=== PATIENT | male | born 1985 | race Caucasian/White ===

== ENCOUNTER 2017-03-08 21:35 | Emergency (ER) | payer MEDICAID, OTHER ==
[2017-03-08] MEDS ORDERED: Ibuprofen 800 MG Tab PO ONE (22:04)
[2017-03-08] MEDS ORDERED: Penicillin V Potassium 500 MG Tab PO STA (22:04)
--- NOTE | 2017-03-08 22:05 | EDM.PDOC ---
ED HPI GENERAL MEDICAL PROBLEM - General Chief Complaint: General Stated Complaint: PT HAS TOOTHACHE Time Seen by Provider: 03/08/17 22:00 Source of Information: Reports: Patient History Limitations: Reports: No Limitations - History of Present Illness INITIAL COMMENTS - FREE TEXT/NARRATIVE: HISTORY AND PHYSICAL: History of present illness: [31-year-old male with multiple caries now complaining of toothache left upper. No facial swelling fevers chills sweats or shaking chills. No headache or stiff neck. No chest pain shortness of breath. Patient has multiple cavities in the tooth that's involved however he says the dentist is "trying to save it. "] Review of systems: As per history of present illness and below otherwise all systems reviewed and negative. Past medical history: As per history of present illness and as reviewed below otherwise noncontributory. Surgical history: As per history of present illness and as reviewed below otherwise noncontributory. Social history: No reported history of drug or alcohol abuse. Family history: As per history of present illness and as reviewed below otherwise noncontributory. Physical exam: Well-appearing patient smiling and comfortable. Left maxillary distribution largely edentulous with a single-tooth with multiple caries. No soft tissue swelling or mass. No cheek swelling. No crepitus. Normal intraoral exam otherwise with no tongue elevation and normal oropharynx. HEENT: Normocephalic, atraumatic, pupils normal and symmetrical, supple neck, no meningismus, normal color Lungs: Normal and symmetrical chest wall excursion bilateral with no tachypnea or increased work of breathing, grossly normal chest exam Heart: No tachycardia in triage Abdomen: Normal-appearing, nondistended, no visible mass or asymmetry Pelvis: Normal-appearing Genitourinary: Deferred Rectal exam: Deferred Extremities: Atraumatic, normal use and range of motion, no visible evidence of gross neurovascular compromise Neuro: Awake, alert, oriented. Normal and appropriate mental status. Cranial nerves grossly unremarkable. Motor function normal. Nonfocal neurologic exam. Diagnostics: [] Therapeutics: [Penicillin and Motrin] Impression: [Toothache Caries] Plan: [Signs and symptoms consistent with caries and toothache discussed with patient possibility of dental infection. Will prescribe penicillin. He is aware to take NSAIDs and follow-up with dentist.] Definitive disposition and diagnosis as appropriate pending reevaluation and review of above. dental area Pain Score (Numeric/FACES): 8 - Related Data Allergies Allergy/AdvReac Type Severity Reaction Status Date / Time hydromorphone Allergy Respiratory Verified 03/08/17 21:52 Distress Home Meds: Home Meds Cholecalciferol (Vitamin D3) [Vitamin D] 5,000 unit PO DAILY 05/27/15 [History] atorvaSTATin [Lipitor] 20 mg PO BEDTIME 05/27/15 [History] Penicillin V Potassium [IJP: Penicillin V Potassium] 500 mg PO .EVERY 6 HOURS # 40 tab 03/08/17 [Rx] Past Medical History HEENT History: Reports: None Cardiovascular History: Reports: High Cholesterol Respiratory History: Reports: None Gastrointestinal History: Reports: None Genitourinary History: Reports: None Musculoskeletal History: Reports: Other (See Below) Other Musculoskeletal History: right arm crush injury Neurological History: Reports: None Psychiatric History: Reports: None Endocrine/Metabolic History: Reports: None Hematologic History: Reports: None Immunologic History: Reports: None Oncologic (Cancer) History: Reports: None Dermatologic History: Reports: None - Infectious Disease History Infectious Disease History: Reports: None - Past Surgical History Head Surgeries/Procedures: Reports: None Musculoskeletal Surgical History: Reports: Other (See Below) Other Musculoskeletal Surgeries/Procedures:: hand surgery Social & Family History - Family History Family Medical History: Noncontributory - Tobacco Use Smoking Status *Q: Never Smoker Second Hand Smoke Exposure: No - Caffeine Use Caffeine Use: Reports: Energy Drinks - Recreational Drug Use Recreational Drug Use: No ED ROS GENERAL - Review of Systems Review Of Systems: See Below (History of present illness) ED EXAM, GENERAL - Physical Exam Exam: See Below (History of present illness) Course - Vital Signs Last Recorded V/S: Last Vital Signs Temp 36.2 C 03/08/17 21:47 Pulse 90 03/08/17 21:47 Resp 16 03/08/17 21:47 BP 134/78 03/08/17 21:47 Pulse Ox 98 03/08/17 21:47 Departure - Departure Time of Disposition: 22:02 Disposition: Home, Self-Care 01 Condition: Good Clinical Impression: Toothache, Caries - Discharge Information Referrals: PCP,None [Primary Care Provider] - Forms: ED Department Discharge Additional Instructions: You have cavities. Finish penicillin as prescribed. Take 800 mg ibuprofen every 6 hours As needed for pain. Follow-up with your dentist in 2 days and return immediately for new severe or worsening symptoms
[2017-03-08 22:27] VITALS: BP 128/70
== END 2017-03-08 22:27 | disposition home or self-care (01) ==
LOC: MW.ED 21:35
DX: K02.9 Dental caries, unspecified (principal); E78.00 Pure hypercholesterolemia, unspecified; Z98.890 Other specified postprocedural states; Z88.5 Allergy status to narcotic agent
CPT/HCPCS: 99282; A9270

== ENCOUNTER 2019-03-08 20:44 | Emergency (ER) | payer OTHER ==
[2019-03-08] MEDS ORDERED: Ketorolac 30 MG/ML SDV IVPUSH ONE (20:45)
[2019-03-08] MEDS ORDERED: Sodium Chloride 0.9% 1,000 ML IV ONE (20:45)
--- NOTE | 2019-03-08 20:49 | EDM.PDOC ---
ED HPI GENERAL MEDICAL PROBLEM - General Stated Complaint: CHEST PAIN Time Seen by Provider: 03/08/19 20:45 Source of Information: Reports: Patient History Limitations: Reports: No Limitations - History of Present Illness INITIAL COMMENTS - FREE TEXT/NARRATIVE: HISTORY AND PHYSICAL: History of present illness: Patient is a 33-year-old male who presents to the emergency room today with complaints of left lateral chest wall pain 2 days. He states that the pain is worse with palpation, deep breathing or aggressive movements. States the pain is constantly there but does not radiate anywhere. Initially he thought the pain was heartburn and as he does frequently have indigestion. He has been taking [id number] products for this without any relief of his pain. He denies any recent injury, trauma or falls. Denies any recent alcohol or drug abuse. Patient denies any fever, chills, headache, change in vision, syncope or near syncope. Denies any back pain, shortness of breath or cough. Denies any abdominal pain, nausea, vomiting, diarrhea or dysuria. States he hasn't had a BM in 4 days, although does not feel constipated. Has not noted any blood in urine or stool. Patient has been eating and drinking appropriately. Review of systems: As per history of present illness and below otherwise all systems reviewed and negative. Past medical history: As per history of present illness and as reviewed below otherwise noncontributory. Surgical history: As per history of present illness and as reviewed below otherwise noncontributory. Social history: See social history for further information Family history: As per history of present illness and as reviewed below otherwise noncontributory. Physical exam: General: Well-developed and well-nourished 33-year-old male. Alert and oriented. Nontoxic appearing and in no acute distress. HEENT: Atraumatic, normocephalic, pupils equal and reactive bilaterally, negative for conjunctival pallor or scleral icterus, mucous membranes moist, TMs normal bilaterally, throat clear, neck supple, nontender, trachea midline. No drooling or trismus noted. No meningeal signs. No hot potato voice noted. Lungs: Clear to auscultation, breath sounds equal bilaterally, tender to palpation to the left lateral and anterior chest wall. Heart: S1S2, regular rate and rhythm without overt murmur Abdomen: Soft, nondistended, nontender. Negative for masses or hepatosplenomegaly. Negative for costovertebral tenderness. Pelvis: Stable nontender. Genitourinary: Deferred. Rectal: Deferred. Skin: Intact, warm, dry. No lesions or rashes noted. Extremities: Atraumatic, moves all extremities per self without difficulty or deficits, negative for cords or calf pain. Neurovascular unremarkable. Neuro: Awake, alert, oriented. Cranial nerves II through XII unremarkable. Cerebellum unremarkable. Motor and sensory unremarkable throughout. Exam nonfocal. Notes: Patient is agreeable to diagnostics. Vital signs are stable and have been reviewed by me. EKG shows normal sinus rhythm. Lab work is unremarkable. Xray shows "normal cardiothymic silhouette. Clear lungs and pleural spaces. No free air. No moderate to large amount of feces throughout the colon. No pneumatosis. No acute osseous abnormality." Medication education was reviewed and discussed for discharge. Supportive care measures were reviewed and discussed. Voices understanding and is agreeable to plan of care. Denies any further questions or concerns at this time. Diagnostics: CBC, CMP, troponin, EKG, acute abdominal series including chest Therapeutics: IV fluid, Toradol Prescription: Tramadol (#15) Impression: Chest wall pain Plan: 1. Tylenol and/or ibuprofen as needed for pain management. Tramadol as needed for moderate to severe pain. This medication may cause drowsiness so do not take it will driving her needing to be functioning outside of the house. 2. Follow-up with your primary care provider as we discussed. Return to the ED as needed and as discussed. Definitive disposition and diagnosis as appropriate pending reevaluation and review of above. Duration: Day(s): Left Chest Pain Score (Numeric/FACES): 7 - Related Data Allergies Allergy/AdvReac Type Severity Reaction Status Date / Time hydromorphone Allergy Respiratory Verified 09/24/18 11:01 MST Distress Home Meds: Home Meds Cholecalciferol (Vitamin D3) [Vitamin D] 5,000 unit PO DAILY 05/27/15 [History] atorvaSTATin [Lipitor] 20 mg PO BEDTIME 05/27/15 [History] Past Medical History HEENT History: Reports: None Cardiovascular History: Reports: High Cholesterol Respiratory History: Reports: None Gastrointestinal History: Reports: GERD Genitourinary History: Reports: None Musculoskeletal History: Reports: Other (See Below) Other Musculoskeletal History: Right hand surgery for a crush injury Neurological History: Reports: None Psychiatric History: Reports: None Endocrine/Metabolic History: Reports: None Hematologic History: Reports: None Immunologic History: Reports: None Oncologic (Cancer) History: Reports: None Dermatologic History: Reports: None - Infectious Disease History Infectious Disease History: Reports: None - Past Surgical History Head Surgeries/Procedures: Reports: None Social & Family History - Family History Family Medical History: Noncontributory - Caffeine Use Caffeine Use: Reports: Soda - Living Situation & Occupation Living situation: Reports: , with Spouse, with Family (4 kids) 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 ED EXAM, GENERAL - Physical Exam Exam: See Below (See dictation) Course - Vital Signs Last Recorded V/S: Last Vital Signs Temp 96.8 F 03/08/19 20:48 Pulse 86 03/08/19 20:48 Resp 16 03/08/19 20:48 BP 131/91 H 03/08/19 20:48 Pulse Ox 95 03/08/19 20:48 - Orders/Labs/Meds Orders: Active Orders 24 hr Category Date Time Status EKG Documentation Completion [RC] STAT Care 03/08/19 20:45 Active Labs: Laboratory Tests 03/08/19 03/08/19 Range/Units 20:58 20:58 WBC 6.84 (4.0-11.0) K/uL RBC 5.51 (4.50-5.90) M/uL Hgb 16.2 (13.0-17.0) g/dL Hct 46.7 (38.0-50.0) % MCV 84.8 (80.0-98.0) fL MCH 29.4 (27.0-32.0) pg MCHC 34.7 (31.0-37.0) g/dL RDW Std Deviation 39.3 (28.0-62.0) fl RDW Coeff of Ekaterina 13 (11.0-15.0) % Plt Count 214 (150-400) K/uL MPV 10.10 (7.40-12.00) fL Neut % (Auto) 51.8 (48.0-80.0) % Lymph % (Auto) 34.8 (16.0-40.0) % [place] % (Auto) 10.4 (0.0-15.0) % Eos % (Auto) 2.6 (0.0-7.0) % Baso % (Auto) 0.4 (0.0-1.5) % Neut # (Auto) 3.5 (1.4-5.7) K/uL Lymph # (Auto) 2.4 (0.6-2.4) K/uL [place] # (Auto) 0.7 (0.0-0.8) K/uL Eos # (Auto) 0.2 (0.0-0.7) K/uL Baso # (Auto) 0.0 (0.0-0.1) K/uL Nucleated RBC % 0.0 /100WBC Nucleated RBCs # 0 K/uL Sodium 137 (136-148) mmol/L Potassium 3.5 (3.5-5.1) mmol/L Chloride 101 (98-107) mmol/L Carbon Dioxide 29.0 (21.0-32.0) mmol/L BUN 12 (7.0-18.0) mg/dL Creatinine 1.0 (0.8-1.3) mg/dL Est Cr Clr Drug Dosing 99.15 mL/min Estimated GFR (MDRD) > 60.0 ml/min Glucose 103 (74-106) mg/dL Calcium 8.6 (8.5-10.1) mg/dL Total Bilirubin 0.7 (0.2-1.0) mg/dL AST 24 (15-37) IU/L ALT 53 (14-63) IU/L Alkaline Phosphatase 103 (46-116) U/L Troponin I < 0.050 (0.000-0.056) ng/mL Total Protein 7.6 (6.4-8.2) g/dL Albumin 4.0 (3.4-5.0) g/dL Globulin 3.6 (2.6-4.0) g/dL Albumin/Globulin Ratio 1.1 (0.9-1.6) Meds: Medications Discontinued Medications Generic Name Dose Route Start Last Admin Trade Name Freq PRN Reason Stop Dose Admin Sodium Chloride 1,000 mls @ 999 mls/hr 03/08/19 20:45 03/08/19 21:01 Normal Saline IV 06/14/19 21:45 999 mls/hr STAT ONE Administration Ketorolac Tromethamine 30 mg 03/08/19 20:45 03/08/19 21:02 Toradol IVPUSH 03/08/19 20:46 30 mg ONETIME ONE Administration Departure - Departure Time of Disposition: 21:58 Disposition: Home, Self-Care 01 Clinical Impression: Chest wall pain - Discharge Information Instructions: Chest Wall Pain, [id number] Additional Instructions: The following information is given to patients seen in the emergency department who are being discharged to home. This information is to outline your options for follow-up care. We provide all patients seen in our emergency department with a follow-up referral. The need for follow-up, as well as the timing and circumstances, are variable depending upon the specifics of your emergency department visit. If you don't have a primary care physician on staff, we will provide you with a referral. We always advise you to contact your personal physician following an emergency department visit to inform them of the circumstance of the visit and for follow-up with them and/or the need for any referrals to a consulting specialist. The emergency department will also refer you to a specialist when appropriate. This referral assures that you have the opportunity for follow-up care with a specialist. All of these measure are taken in an effort to provide you with optimal care, which includes your follow-up. Under all circumstances we always encourage you to contact your private physician who remains a resource for coordinating your care. When calling for follow-up care, please make the office aware that this follow-up is from your recent emergency room visit. If for any reason you are refused follow-up, please contact the [facility] Emergency Department at and asked to speak to the emergency department charge nurse. [facility] [address] [address] [facility] [address] [place] [id number] 1. Tylenol and/or ibuprofen as needed for pain management. Tramadol as needed for moderate to severe pain. This medication may cause drowsiness so do not take it will driving her needing to be functioning outside of the house. 2. Follow-up with your primary care provider as we discussed. Return to the ED as needed and as discussed. - My Orders Last 24 Hours: My Active Orders 03/08/19 20:45 EKG Documentation Completion [RC] STAT - Assessment/Plan Last 24 Hours: My Active Orders 03/08/19 20:45 EKG Documentation Completion [RC] STAT
[2019-03-08 21:33] LABS: CHLORIDE,CL 101 mmol/L (98-107); SODIUM,NA 137 mmol/L (136-148)
--- NOTE | 2019-03-08 21:55 | CR ---
Indication: No bowel movement for 4 days, left upper quadrant pain Technique: Frontal view chest, supine and upright views abdomen Comparison: None Findings/Impression: : Normal cardiothymic silhouette. Clear lungs and pleural spaces. No free air. No moderate to large amount of feces throughout the colon. No pneumatosis. No acute osseous abnormality. Dictated by Cindy Cochran MD @ Mar 08 2019 9:54PM Signed by Dr. Cindy Cochran @ Mar 08 2019 9:54PM
[2019-03-08 22:42] VITALS: BP 130/88
== END 2019-03-08 22:18 | disposition home or self-care (01) ==
LOC: MW.ED 20:44
DX: R07.89 Other chest pain (principal); E78.00 Pure hypercholesterolemia, unspecified; K21.9 Gastro-esophageal reflux disease without esophagitis; Z88.5 Allergy status to narcotic agent; Z79.899 Other long term (current) drug therapy
CPT/HCPCS: 36415; 74022; 80053; 84484; 85025; 93005; 96361; 96374; 99285; J1885; J7040

== ENCOUNTER 2019-07-21 23:16 | Emergency (ER) | payer BC, OTHER ==
[2019-07-21] MEDS ORDERED: Sodium Chloride 0.9% 1,000 ML IV ONE ×2 (23:25→23:32)
--- NOTE | 2019-07-21 23:28 | EDM.PDOC ---
ED HPI GENERAL MEDICAL PROBLEM - General Chief Complaint: Abdominal Pain Stated Complaint: PAIN IN LOWER RIGHT SIDE Time Seen by Provider: 07/21/19 23:21 - History of Present Illness INITIAL COMMENTS - FREE TEXT/NARRATIVE: HISTORY AND PHYSICAL: History of present illness: Patient 34-year-old male presents with concern of abdominal pain this been going on for 1 week he has been seeing his private physician for he denies fever chills nausea vomiting diarrhea or other concern denies trauma Review of systems: As per history of present illness and below otherwise all systems reviewed and negative. Past medical history: As per history of present illness and as reviewed below otherwise noncontributory. Surgical history: As per history of present illness and as reviewed below otherwise noncontributory. Social history: No reported history of drug or alcohol abuse. Family history: As per history of present illness and as reviewed below otherwise noncontributory. Physical exam: HEENT: Atraumatic, normocephalic, pupils reactive, negative for conjunctival pallor or scleral icterus, mucous membranes moist, throat clear, neck supple, nontender, trachea midline. Lungs: Clear to auscultation, breath sounds equal bilaterally, chest nontender. Heart: S1S2, regular, negative for clicks, rubs, or JVD. Abdomen: Soft, nondistended, nontender. Negative for masses or hepatosplenomegaly. Negative for costovertebral tenderness. Pelvis: Stable nontender. Genitourinary: Deferred. Rectal: Deferred. Extremities: Atraumatic, negative for cords or calf pain. Neurovascular unremarkable. Neuro: Awake, alert, oriented. Cranial nerves II through XII unremarkable. Cerebellum unremarkable. Motor and sensory unremarkable throughout. Exam nonfocal. Diagnostics: CBC CMP UA acute abdominal series with chest x-ray Therapeutics: Saline 1 L bolus Impression: #1 nonspecific abdominal pain Definitive disposition and diagnosis as appropriate pending reevaluation and review of above. - Related Data Allergies Allergy/AdvReac Type Severity Reaction Status Date / Time hydromorphone Allergy Respiratory Verified 09/24/18 11:01 MST Distress Home Meds: Home Meds Cholecalciferol (Vitamin D3) [Vitamin D] 5,000 unit PO DAILY 05/27/15 [History] atorvaSTATin [Lipitor] 20 mg PO BEDTIME 05/27/15 [History] traMADol [Ultram] 50 mg PO ASDIRECTED 07/21/19 [History] Past Medical History HEENT History: Reports: None Cardiovascular History: Reports: High Cholesterol Respiratory History: Reports: None Gastrointestinal History: Reports: GERD Genitourinary History: Reports: None Musculoskeletal History: Reports: Other (See Below) Other Musculoskeletal History: Right hand surgery for a crush injury Neurological History: Reports: None Psychiatric History: Reports: None Endocrine/Metabolic History: Reports: None Hematologic History: Reports: None Immunologic History: Reports: None Oncologic (Cancer) History: Reports: None Dermatologic History: Reports: None - Infectious Disease History Infectious Disease History: Reports: None - Past Surgical History Head Surgeries/Procedures: Reports: None Social & Family History - Family History Family Medical History: Noncontributory - Caffeine Use Caffeine Use: Reports: Soda - Living Situation & Occupation Living situation: Reports: , with Spouse, with Family (4 kids) 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 ED EXAM, GENERAL - Physical Exam Exam: See Below (See dictation) Course - Vital Signs Last Recorded V/S: Last Vital Signs Temp 36.4 C 07/22/19 00:51 Pulse 88 07/22/19 00:51 Resp 16 07/22/19 00:51 BP 129/75 07/22/19 00:51 Pulse Ox 97 07/22/19 00:51 - Orders/Labs/Meds Labs: Laboratory Tests 07/21/19 07/21/19 07/21/19 Range/Units 23:33 23:40 23:40 WBC 7.82 (4.0-11.0) K/uL RBC 5.35 (4.50-5.90) M/uL Hgb 15.7 (13.0-17.0) g/dL Hct 45.1 (38.0-50.0) % MCV 84.3 (80.0-98.0) fL MCH 29.3 (27.0-32.0) pg MCHC 34.8 (31.0-37.0) g/dL RDW Std Deviation 38.3 (28.0-62.0) fl RDW Coeff of Ekaterina 13 (11.0-15.0) % Plt Count 227 (150-400) K/uL MPV 10.30 (7.40-12.00) fL Neut % (Auto) 62.1 (48.0-80.0) % Lymph % (Auto) 29.2 (16.0-40.0) % [place] % (Auto) 6.5 (0.0-15.0) % Eos % (Auto) 1.7 (0.0-7.0) % Baso % (Auto) 0.5 (0.0-1.5) % Neut # (Auto) 4.9 (1.4-5.7) K/uL Lymph # (Auto) 2.3 (0.6-2.4) K/uL [place] # (Auto) 0.5 (0.0-0.8) K/uL Eos # (Auto) 0.1 (0.0-0.7) K/uL Baso # (Auto) 0.0 (0.0-0.1) K/uL Nucleated RBC % 0.0 /100WBC Nucleated RBCs # 0 K/uL Sodium 141 (136-148) mmol/L Potassium 3.8 (3.5-5.1) mmol/L Chloride 103 (98-107) mmol/L Carbon Dioxide 28.9 (21.0-32.0) mmol/L BUN 9 (7.0-18.0) mg/dL Creatinine 0.9 (0.8-1.3) mg/dL Est Cr Clr Drug Dosing 109.15 mL/min Estimated GFR (MDRD) > 60.0 ml/min Glucose 116 H (74-106) mg/dL Calcium 8.6 (8.5-10.1) mg/dL Total Bilirubin 0.3 (0.2-1.0) mg/dL AST 17 (15-37) IU/L ALT 26 (14-63) IU/L Alkaline Phosphatase 117 H (46-116) U/L Total Protein 7.8 (6.4-8.2) g/dL Albumin 4.0 (3.4-5.0) g/dL Globulin 3.8 (2.6-4.0) g/dL Albumin/Globulin Ratio 1.1 (0.9-1.6) Urine Color YELLOW Urine Appearance CLEAR Urine pH 6.5 (5.0-8.0) Ur Specific [place] 1.020 (1.001-1.035) Urine Protein NEGATIVE (NEGATIVE) mg/dL Urine Glucose (UA) NEGATIVE (NEGATIVE) mg/dL Urine Ketones NEGATIVE (NEGATIVE) mg/dL Urine Occult Blood NEGATIVE (NEGATIVE) Urine Nitrite NEGATIVE (NEGATIVE) Urine Bilirubin NEGATIVE (NEGATIVE) Urine Urobilinogen 0.2 (<2.0) EU/dL Ur Leukocyte Esterase NEGATIVE (NEGATIVE) Meds: Medications Discontinued Medications Generic Name Dose Route Start Last Admin Trade Name Cjq PRN Reason Stop Dose Admin Sodium Chloride 1,000 mls @ 999 mls/hr 07/21/19 23:32 07/21/19 23:47 Normal Saline IV 07/22/19 00:32 999 mls/hr .Bolus ONE Administration Departure - Departure Time of Disposition: 00:54 Disposition: Home, Self-Care 01 Condition: Good Clinical Impression: Abdominal pain, Encounter for medical screening examination - Discharge Information Referrals: Gabe English MD [Primary Care Provider] - Forms: ED Department Discharge Additional Instructions: The following information is given to patients seen in the emergency department who are being discharged to home. This information is to outline your options for follow-up care. We provide all patients seen in our emergency department with a follow-up referral. The need for follow-up, as well as the timing and circumstances, are variable depending upon the specifics of your emergency department visit. If you don't have a primary care physician on staff, we will provide you with a referral. We always advise you to contact your personal physician following an emergency department visit to inform them of the circumstance of the visit and for follow-up with them and/or the need for any referrals to a consulting specialist. The emergency department will also refer you to a specialist when appropriate. This referral assures that you have the opportunity for followup care with a specialist. All of these measure are taken in an effort to provide you with optimal care, which includes your followup. Under all circumstances we always encourage you to contact your private physician who remains a resource for coordinating your care. When calling for followup care, please make the office aware that this follow-up is from your recent emergency room visit. If for any reason you are refused follow-up, please contact the [facility] emergency department at and asked to speak to the emergency department charge nurse. Follow-up primary medical doctor as discussed return as needed as discussed
[2019-07-22 00:10] LABS: BLOOD UREA NITROGEN,BUN 9 mg/dL (7.0-18.0); CARBON DIOXIDE,CO2 28.9 mmol/L (21.0-32.0); CHLORIDE,CL 103 mmol/L (98-107); GLUCOSE RANDOM 116 mg/dL (74-106); POTASSIUM,K 3.8 mmol/L (3.5-5.1); SODIUM,NA 141 mmol/L (136-148)
--- NOTE | 2019-07-22 00:31 | CR ---
INDICATION: : Right lower quadrant pain COMPARISON: 03/08/2019 FINDINGS: Erect and supine films of the abdomen were combined with an erect film of the chest. In the abdomen, there is no sign of distention of the small bowel or colon to suggest obstruction or ileus. There is no sign of free air or distinct mass. The fecal burden has decreased during the interval, with nothing seen to suggest constipation. The osseous structures are normal in appearance for the patient`s age. In the chest, the lungs are clear and the heart and mediastinum are normal in appearance. IMPRESSION: Normal abdomen two views with chest. Dictated by Jerrell Carranza MD @ Jul 22 2019 12:27AM Signed by Dr. Jerrell Carranza @ Jul 22 2019 12:29AM
[2019-07-22 00:51] VITALS: BP 129/75; PULSE 88
== END 2019-07-22 01:03 | disposition home or self-care (01) ==
LOC: MW.ED 23:16
DX: Z04.89 Encounter for examination and observation for other specified reasons (principal); R10.9 Unspecified abdominal pain; E78.00 Pure hypercholesterolemia, unspecified; Z79.899 Other long term (current) drug therapy; Z88.5 Allergy status to narcotic agent
CPT/HCPCS: 36415; 74022; 80053; 81003; 85025; 96360; 99284; J7040; 99283

== ENCOUNTER 2020-05-18 16:56 | Observation (INO) | payer OTHER ==
[2020-05-18] MEDS ORDERED: Sodium Chloride 0.9% 10 ML Syringe FLUSH PRN (17:08)
[2020-05-18] MEDS ORDERED: Sodium Chloride 0.9% 10 ML SDV IV PRN (17:08)
[2020-05-18] MEDS ORDERED: Sodium Chloride 0.9% 2.5 ML Syringe FLUSH PRN ×2 (17:08)
--- NOTE | 2020-05-18 17:30 | CT ---
Head CT Technique: Multiple axial sections through the brain were obtained. Intravenous contrast was not utilized. Comparison: No prior intracranial imaging is available. Findings: Asymmetric size of the lateral ventricles is noted. No etiology is seen and this is most likely developmental. No abnormal parenchymal densities are seen. No evidence of intracranial hemorrhage. No midline shift or mass-effect is appreciated. Bone window settings were reviewed which show the visualized mastoid and paranasal sinuses do show nothing acute. No acute calvarial finding is appreciated. Impression: 1. Asymmetric size of the lateral ventricles which is most likely developmental. 2. No acute intracranial abnormality is appreciated. Note: Please correlate if patient's symptoms warrant further evaluation by MRI. Diagnostic code #2 This report was dictated in MDT
[2020-05-18 17:41] LABS: BLOOD UREA NITROGEN,BUN 8 mg/dL (7.0-18.0); CARBON DIOXIDE,CO2 29.7 mmol/L (21.0-32.0); CHLORIDE,CL 103 mmol/L (98-107); GLUCOSE RANDOM 117 mg/dL (74-106); POTASSIUM,K 3.6 mmol/L (3.5-5.1); SODIUM,NA 141 mmol/L (136-148)
[2020-05-18] MEDS ORDERED: Aspirin 81 MG Tab.Chew PO ONE (18:08)
--- NOTE | 2020-05-18 18:09 | EDM.PDOC ---
ED HPI GENERAL MEDICAL PROBLEM - General Chief Complaint: Neuro Symptoms/Deficits Stated Complaint: ARM PAIN/NUMBNESS RIGHT ARM Time Seen by Provider: 05/18/20 17:07 - History of Present Illness INITIAL COMMENTS - FREE TEXT/NARRATIVE: History of present illness: Patient presents with right upper extremity weakness that is been going on since Monday. Patient relates that he had flank pain and went to [facility] emergency department on Monday and was treated there for kidney stone he came home that night and was on a lot of pain medications and he went to sleep when he woke up Monday he thought he had slept wrong on his arm but he has not been able to move his arm properly since denies any chest pain shortness of breath no fever chills cough he denies any current flank pain there is weakness and numbness in the right upper extremity a stroke code was called on arrival. Patient has had an injury to his right upper extremity where it was crushed and he had what looks like compartment syndrome but he states his arm is normally fully functional. Review of systems: As per history of present illness and below otherwise all systems reviewed and negative. Past medical history: As per history of present illness and as reviewed below otherwise noncontributory. Surgical history: As per history of present illness and as reviewed below otherwise noncontributory. Social history: No reported history of drug or alcohol abuse. Family history: As per history of present illness and as reviewed below otherwise noncontributory. Physical exam: HEENT: Atraumatic, normocephalic, pupils reactive, negative for conjunctival pallor or scleral icterus, mucous membranes moist, throat clear, neck supple, nontender, trachea midline. Lungs: Clear to auscultation, breath sounds equal bilaterally, chest nontender. Heart: S1S2, regular, negative for clicks, rubs, or JVD. Abdomen: Soft, nondistended, nontender. Negative for masses or hepatosplenomegaly. Negative for costovertebral tenderness. Pelvis: Stable nontender. Genitourinary: Deferred. Rectal: Deferred. Extremities: Atraumatic, negative for cords or calf pain. Neurovascular unremarkable. Neuro: Awake, alert, oriented. Cranial nerves II through XII unremarkable. Cerebellum unremarkable. Motor and sensory unremarkable throughout. Exam nonfocal. The right upper extremity has pronator drift that is moderate and takes about 15 seconds to go from upright to reaching the bed there are no cranial nerve abnormalities there is slight right lower extremity weakness no speech abnormalities no facial droop Diagnostics: [] Therapeutics: [] Impression: CVA with right-sided upper extremity weakness versus a dense neuropraxia on the right [] Plan: Eval for CVA [] Definitive disposition and diagnosis as appropriate pending reevaluation and review of above. - Related Data Allergies Allergy/AdvReac Type Severity Reaction Status Date / Time fentanyl Allergy Other Verified 05/18/20 17:01 hydromorphone Allergy Respiratory Verified 05/18/20 17:01 Distress Home Meds: Home Meds Cholecalciferol (Vitamin D3) [Vitamin D] 5,000 unit PO DAILY 05/27/15 [History] traMADol [Ultram] 50 mg PO TID 07/21/19 [History] Acetaminophen/HYDROcodone [[place] 325-5 MG] 1 - 2 tab PO Q6H #12 tablet 12/03/19 [Rx] Clindamycin HCl 300 mg PO TID #21 capsule 12/03/19 [Rx] Past Medical History HEENT History: Reports: None Cardiovascular History: Reports: High Cholesterol Respiratory History: Reports: None Gastrointestinal History: Reports: GERD Genitourinary History: Reports: Renal Calculus Musculoskeletal History: Reports: Other (See Below) Other Musculoskeletal History: Right hand surgery for a crush injury Neurological History: Reports: None Psychiatric History: Reports: None Endocrine/Metabolic History: Reports: None Hematologic History: Reports: None Immunologic History: Reports: None Oncologic (Cancer) History: Reports: None Dermatologic History: Reports: None - Infectious Disease History Infectious Disease History: Reports: None - Past Surgical History Head Surgeries/Procedures: Reports: None HEENT Surgical History: Reports: None Cardiovascular Surgical History: Reports: None Respiratory Surgical History: Reports: None GI Surgical History: Reports: None Male Surgical History: Reports: None Endocrine Surgical History: Reports: None Neurological Surgical History: Reports: None Musculoskeletal Surgical History: Reports: None Oncologic Surgical History: Reports: None Dermatological Surgical History: Reports: None Social & Family History - Family History Family Medical History: Noncontributory - Tobacco Use Smoking Status *Q: Never Smoker Second Hand Smoke Exposure: No - Caffeine Use Caffeine Use: Reports: None - Recreational Drug Use Recreational Drug Use: No - Living Situation & Occupation Living situation: Reports: , with Spouse, with Family (4 kids) 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) ED ROS GENERAL - Review of Systems Review Of Systems: See Below ED EXAM, GENERAL - Physical Exam Exam: See Below EKG INTERPRETATION EKG Interpretation Comments: EKG is normal sinus rhythm sinus tachycardia rate of [address]-T changes no shan ischemia read and interpreted by me normal intervals normal axis Course - Vital Signs Text/Narrative:: It is difficult to determine whether the patient has a dense neurapraxia or has had a CVA in this case I can almost imagine some right-sided weakness but the patient denies any right-sided weakness in the lower extremities the right upper extremity is definitely weak with also correlating lack of sensation. Confounding the situation is the patient's troponin is negative he denies any chest pain. Adrianne case with Dr. Newman at 615 he will send 1 of the residents down to evaluate the patient to determine what further course needs to be taken and whether he needs to be transferred to a higher level of care due to his elevated troponin. T was read as unremarkable for acute injury and aspirin was ordered. Speaking with Dr. Newman I will add on inflammatory markers in the COVID-[address] King saw the patient in the ED he and Dr. Newman have decided they will admit the patient to their service. 7 PM Last Recorded V/S: Last Vital Signs Temp 35.5 C L 05/18/20 17:01 Pulse 91 05/18/20 17:01 Resp 18 05/18/20 17:01 BP 134/80 05/18/20 17:01 Pulse Ox 96 05/18/20 17:01 - Orders/Labs/Meds Orders: Active Orders 24 hr Category Date Time Status Admission Status [Patient Status] [ADT] Stat ADT 05/18/20 18:51 Active Assess Neurological Status [RC] ASDIRECTED Care 05/18/20 17:08 Active Bedrest [RC] ASDIRECTED Care 05/18/20 17:08 Active Cardiac Monitoring [RC] . DIRECTED Care 05/18/20 17:08 Active EKG Documentation Completion [RC] STAT Care 05/18/20 17:08 Active Height and Weight [RC] UPON Care 05/18/20 17:08 Active Initiate Acute Stroke Protocol [RC] STAT Care 05/18/20 17:08 Active NIH Stroke Scale [RC] ASDIRECTED Care 05/18/20 17:08 Active Nursing Bedside Swallow Screen [RC] ASDIRECTED Care 05/18/20 17:08 Active Oxygen Therapy [RC] ASDIRECTED Care 05/18/20 17:08 Active Stroke Education, General [RC] Click to Edit Care 05/18/20 17:08 Active Vital Signs [RC] Q15M Care 05/18/20 17:08 Active CORONAVIRUS COVID-19 RAPID [MOLEC] Stat Lab 05/18/20 18:57 Received Sodium Chloride 0.9% [Normal Saline] Med 05/18/20 17:08 Active 10 ml IV ASDIRECTED PRN Sodium Chloride 0.9% [Saline Flush] Med 05/18/20 17:08 Active 10 ml FLUSH ASDIRECTED PRN Sodium Chloride 0.9% [Saline Flush] Med 05/18/20 17:08 Active 2.5 ml FLUSH ASDIRECTED PRN Sodium Chloride 0.9% [Saline Flush] Med 05/18/20 17:08 Active 2.5 ml FLUSH ASDIRECTED PRN Peripheral IV Insertion Adult [OM.PC] Stat Oth 05/18/20 17:08 Ordered Peripheral IV Insertion Adult [OM.PC] Stat Oth 05/18/20 17:08 Ordered Resuscitation Status Stat Resus Stat 05/18/20 17:08 Ordered Medication Orders Sodium Chloride (Saline Flush) 2.5 ml FLUSH ASDIRECTED PRN PRN Reason: Keep Vein Open Last Admin: 05/18/20 18:45 Dose: 2.5 ml Documented by: BRITTANY Sodium Chloride (Saline Flush) 10 ml FLUSH ASDIRECTED PRN PRN Reason: Keep Vein Open Last Admin: 05/18/20 18:45 Dose: 10 ml Documented by: BRITTANY Sodium Chloride (Saline Flush) 2.5 ml FLUSH ASDIRECTED PRN PRN Reason: Keep Vein Open Last Admin: 05/18/20 18:45 Dose: 2.5 ml Documented by: FEDLKER Sodium Chloride (Normal Saline) 10 ml IV ASDIRECTED PRN PRN Reason: IV Use Labs: Laboratory Tests 05/18/20 05/18/20 05/18/20 Range/Units 17:03 17:03 17:03 WBC 6.45 (4.0-11.0) K/uL RBC 4.55 (4.50-5.90) M/uL Hgb 13.2 (13.0-17.0) g/dL Hct 39.3 (38.0-50.0) % MCV 86.4 (80.0-98.0) fL MCH 29.0 (27.0-32.0) pg MCHC 33.6 (31.0-37.0) g/dL RDW Std Deviation 41.3 (28.0-62.0) fl RDW Coeff of Ekaterina 13 (11.0-15.0) % Plt Count 150 (150-400) K/uL MPV 9.70 (7.40-12.00) fL Neut % (Auto) 47.8 L (48.0-80.0) % Lymph % (Auto) 40.5 H (16.0-40.0) % [place] % (Auto) 9.5 (0.0-15.0) % Eos % (Auto) 2.0 (0.0-7.0) % Baso % (Auto) 0.2 (0.0-1.5) % Neut # (Auto) 3.1 (1.4-5.7) K/uL Lymph # (Auto) 2.6 H (0.6-2.4) K/uL [place] # (Auto) 0.6 (0.0-0.8) K/uL Eos # (Auto) 0.1 (0.0-0.7) K/uL Baso # (Auto) 0.0 (0.0-0.1) K/uL Nucleated RBC % 0.0 /100WBC Nucleated RBCs # 0 K/uL ESR (0-14) mm/hr INR 1.07 APTT 25.4 (18.6-31.3) SEC Sodium 141 (136-148) mmol/L Potassium 3.6 (3.5-5.1) mmol/L Chloride 103 (98-107) mmol/L Carbon Dioxide 29.7 (21.0-32.0) mmol/L BUN 8 (7.0-18.0) mg/dL Creatinine 1.0 (0.8-1.3) mg/dL Est Cr Clr Drug Dosing 97.31 mL/min Estimated GFR (MDRD) > 60.0 ml/min Glucose 117 H (74-106) mg/dL Calcium 8.6 (8.5-10.1) mg/dL Total Bilirubin 0.8 (0.2-1.0) mg/dL AST 57 H (15-37) IU/L ALT 48 (14-63) IU/L Alkaline Phosphatase 76 (46-116) U/L Creatine Kinase (26-308) U/L Troponin I 0.259 H* (0.000-0.056) ng/mL C-Reactive Protein (0.00-0.90) mg/dL Total Protein 6.7 (6.4-8.2) g/dL Albumin 3.5 (3.4-5.0) g/dL Globulin 3.2 (2.6-4.0) g/dL Albumin/Globulin Ratio 1.1 (0.9-1.6) TSH 3rd Generation 2.39 (0.36-3.74) uIU/mL 05/18/20 05/18/20 Range/Units 17:03 17:03 WBC (4.0-11.0) K/uL RBC (4.50-5.90) M/uL Hgb (13.0-17.0) g/dL Hct (38.0-50.0) % MCV (80.0-98.0) fL MCH (27.0-32.0) pg MCHC (31.0-37.0) g/dL RDW Std Deviation (28.0-62.0) fl RDW Coeff of Ekaterina (11.0-15.0) % Plt Count (150-400) K/uL MPV (7.40-12.00) fL Neut % (Auto) (48.0-80.0) % Lymph % (Auto) (16.0-40.0) % [place] % (Auto) (0.0-15.0) % Eos % (Auto) (0.0-7.0) % Baso % (Auto) (0.0-1.5) % Neut # (Auto) (1.4-5.7) K/uL Lymph # (Auto) (0.6-2.4) K/uL [place] # (Auto) (0.0-0.8) K/uL Eos # (Auto) (0.0-0.7) K/uL Baso # (Auto) (0.0-0.1) K/uL Nucleated RBC % /100WBC Nucleated RBCs # K/uL ESR 18 H (0-14) mm/hr INR APTT (18.6-31.3) SEC Sodium (136-148) mmol/L Potassium (3.5-5.1) mmol/L Chloride (98-107) mmol/L Carbon Dioxide (21.0-32.0) mmol/L BUN (7.0-18.0) mg/dL Creatinine (0.8-1.3) mg/dL Est Cr Clr Drug Dosing mL/min Estimated GFR (MDRD) ml/min Glucose (74-106) mg/dL Calcium (8.5-10.1) mg/dL Total Bilirubin (0.2-1.0) mg/dL AST (15-37) IU/L ALT (14-63) IU/L Alkaline Phosphatase (46-116) U/L Creatine Kinase 784 H (26-308) U/L Troponin I (0.000-0.056) ng/mL C-Reactive Protein 10.40 H (0.00-0.90) mg/dL Total Protein (6.4-8.2) g/dL Albumin (3.4-5.0) g/dL Globulin (2.6-4.0) g/dL Albumin/Globulin Ratio (0.9-1.6) TSH 3rd Generation (0.36-3.74) uIU/mL Meds: Medications Generic Name Dose Route Start Last Admin Trade Name Freq PRN Reason Stop Dose Admin Sodium Chloride 2.5 ml 05/18/20 17:08 05/18/20 18:45 Saline Flush FLUSH 2.5 ml ASDIRECTED PRN Administration Keep Vein Open Sodium Chloride 10 ml 05/18/20 17:08 05/18/20 18:45 Saline Flush FLUSH 10 ml ASDIRECTED PRN Administration Keep Vein Open Sodium Chloride 2.5 ml 05/18/20 17:08 05/18/20 18:45 Saline Flush FLUSH 2.5 ml ASDIRECTED PRN Administration Keep Vein Open Sodium Chloride 10 ml 05/18/20 17:08 Normal Saline IV ASDIRECTED PRN IV Use Discontinued Medications Generic Name Dose Route Start Last Admin Trade Name Freq PRN Reason Stop Dose Admin Aspirin 324 mg 05/18/20 18:08 05/18/20 18:44 Aspirin PO 05/18/20 18:09 324 mg ONETIME ONE Administration Departure - Departure Time of Disposition: 19:00 Disposition: Refer to Observation Condition: Good Clinical Impression: Elevated troponin, Right arm weakness - Discharge Information *PRESCRIPTION DRUG MONITORING PROGRAM REVIEWED*: Not Applicable *COPY OF PRESCRIPTION DRUG MONITORING REPORT IN PATIENT BERNA: Not Applicable Referrals: PCP,None [Primary Care Provider] - Forms: ED Department Discharge Sepsis Event Note (ED) - Evaluation Sepsis Screening Result: No Definite Risk - Focused Exam Vital Signs: Vital Signs Temp Pulse Resp BP Pulse Ox 05/18/20 17:01 35.5 C L 91 18 134/80 96 - My Orders Last 24 Hours: My Active Orders 05/18/20 17:08 Assess Neurological Status [RC] ASDIRECTED Bedrest [RC] ASDIRECTED Cardiac Monitoring [RC] . DIRECTED EKG Documentation Completion [RC] STAT Height and Weight [RC] UPON Initiate Acute Stroke Protocol [RC] STAT NIH Stroke Scale [RC] ASDIRECTED Nursing Bedside Swallow Screen [RC] ASDIRECTED Oxygen Therapy [RC] ASDIRECTED Stroke Education, General [RC] Click to Edit Vital Signs [RC] Q15M Sodium Chloride 0.9% [Normal Saline] 10 ml IV ASDIRECTED PRN Sodium Chloride 0.9% [Saline Flush] 10 ml FLUSH ASDIRECTED PRN Sodium Chloride 0.9% [Saline Flush] 2.5 ml FLUSH ASDIRECTED PRN Sodium Chloride 0.9% [Saline Flush] 2.5 ml FLUSH ASDIRECTED PRN Peripheral IV Insertion Adult [OM.PC] Stat Peripheral IV Insertion Adult [OM.PC] Stat Resuscitation Status Stat 05/18/20 18:51 Admission Status [Patient Status] [ADT] Stat 05/18/20 18:57 CORONAVIRUS COVID-19 RAPID [MOLEC] Stat - Assessment/Plan Last 24 Hours: My Active Orders 05/18/20 17:08 Assess Neurological Status [RC] ASDIRECTED Bedrest [RC] ASDIRECTED Cardiac Monitoring [RC] . DIRECTED EKG Documentation Completion [RC] STAT Height and Weight [RC] UPON Initiate Acute Stroke Protocol [RC] STAT NIH Stroke Scale [RC] ASDIRECTED Nursing Bedside Swallow Screen [RC] ASDIRECTED Oxygen Therapy [RC] ASDIRECTED Stroke Education, General [RC] Click to Edit Vital Signs [RC] Q15M Sodium Chloride 0.9% [Normal Saline] 10 ml IV ASDIRECTED PRN Sodium Chloride 0.9% [Saline Flush] 10 ml FLUSH ASDIRECTED PRN Sodium Chloride 0.9% [Saline Flush] 2.5 ml FLUSH ASDIRECTED PRN Sodium Chloride 0.9% [Saline Flush] 2.5 ml FLUSH ASDIRECTED PRN Peripheral IV Insertion Adult [OM.PC] Stat Peripheral IV Insertion Adult [OM.PC] Stat Resuscitation Status Stat 05/18/20 18:51 Admission Status [Patient Status] [ADT] Stat 05/18/20 18:57 CORONAVIRUS COVID-19 RAPID [MOLEC] Stat
--- NOTE | 2020-05-18 18:25 | CR ---
Chest: Portable AP view of the chest was obtained. Comparison: No prior chest imaging is available. Heart size and mediastinum are normal. Lungs show no acute parenchymal change. Bony structures are grossly intact. Impression: 1. Nothing acute is appreciated on portable chest x-ray. Diagnostic code #1 This report was dictated in MDT
--- NOTE | 2020-05-18 18:55 | PCM.HP.2 ---
H&P History of Present Illness - General Date of Service: 05/18/20 Admit Problem/Dx: Admission Diagnosis/Problem Admission Diagnosis/Problem Elevated troponin level - History of Present Illness Initial Comments - Free Text/Narative: Patient is a 35-year-old male with a significant past medical history of chronic regional pain syndrome secondary to crush injury incurred on 02/12/2015 with multiple surgeries of right upper extremities x6 including right ulnar nerve repair, flexor muscle and tendon repair x6, cubital tunnel release and interventional and adjunctive therapies including oxycodone therapy and topical ketamine: Presenting this afternoon after experiencing right upper extremity weakness since Monday afternoon. Patient was seen with flank pain and went to [place] on Monday and was treated for kidney stones; was provided increasing pain medication (despite being on home pain medications) and subsequently went to sleep Monday around 7 PM and woke up Monday late afternoon with pins and needle sensation of right upper extremity. Concerned about stroke/TIA : presented to ED ED course; ASA 325 provided. Stroke code called. EKG showed sinus tachycardia CT scan of head; no acute intracranial bleed however developmental changes of the left ventricle appreciated. Chest x-ray negative Troponin mild marginally elevated at 0.259; patient however denies any chest pain, shortness of breath, palpitations Bedside; patient not endorsing any new pain but is still complaining of right upper extremity paresthesia denies any weakness, CP, palpitations, SOB, RAMOS and or recent LOC - Related Data Allergies/Adverse Reactions: Allergies Allergy/AdvReac Type Severity Reaction Status Date / Time fentanyl Allergy Other Verified 05/18/20 17:01 hydromorphone Allergy Respiratory Verified 05/18/20 17:01 Distress Home Medications: Home Meds Cholecalciferol (Vitamin D3) [Vitamin D] 5,000 unit PO DAILY 05/27/15 [History] traMADol [Ultram] 50 mg PO TID 07/21/19 [History] Acetaminophen/HYDROcodone [[place] 325-5 MG] 1 - 2 tab PO Q6H #12 tablet 12/03/19 [Rx] Clindamycin HCl 300 mg PO TID #21 capsule 12/03/19 [Rx] Past Medical History HEENT History: Reports: None Cardiovascular History: Reports: High Cholesterol Respiratory History: Reports: None Gastrointestinal History: Reports: GERD Genitourinary History: Reports: Renal Calculus Musculoskeletal History: Reports: Other (See Below) Other Musculoskeletal History: Right hand surgery for a crush injury Neurological History: Reports: None Psychiatric History: Reports: None Endocrine/Metabolic History: Reports: None Hematologic History: Reports: None Immunologic History: Reports: None Oncologic (Cancer) History: Reports: None Dermatologic History: Reports: None - Infectious Disease History Infectious Disease History: Reports: None - Past Surgical History Head Surgeries/Procedures: Reports: None HEENT Surgical History: Reports: None Cardiovascular Surgical History: Reports: None Respiratory Surgical History: Reports: None GI Surgical History: Reports: None Male Surgical History: Reports: None Endocrine Surgical History: Reports: None Neurological Surgical History: Reports: None Musculoskeletal Surgical History: Reports: None Oncologic Surgical History: Reports: None Dermatological Surgical History: Reports: None Social & Family History - Family History Family Medical History: Noncontributory - Tobacco Use Smoking Status *Q: Never Smoker Second Hand Smoke Exposure: No - Caffeine Use Caffeine Use: Reports: None - Recreational Drug Use Recreational Drug Use: No - Living Situation & Occupation Living situation: Reports: , with Spouse, with Family (4 kids) 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 Denies: Fever, Chills HEENT: Reports: No Symptoms Pulmonary: Reports: No Symptoms. Denies: Shortness of Breath, Wheezing, Pleuritic Chest Pain Cardiovascular: Denies: Chest Pain, Palpitations, Dyspnea on Exertion, Syncope Gastrointestinal: Reports: No Symptoms. Denies: Abdominal Pain, Constipation, Diarrhea Genitourinary: Denies: No Symptoms Musculoskeletal: Reports: No Symptoms, Arm Pain Skin: Reports: No Symptoms Psychiatric: Denies: Confusion, Depression Neurological: Reports: Numbness, Paresthesia, Pre-Existing Deficit, Tingling. Denies: Headache, Tremors, Trouble Speaking, Difficulty Walking, Weakness, Change in Speech, Gait Disturbance Hematologic/Lymphatic: Reports: No Symptoms Immunologic: Reports: No Symptoms Exam - Exam Exam: See Below - Vital Signs Vital Signs: Last Vital Signs Temp 96 F L 05/18/20 17:01 Pulse 91 05/18/20 17:01 Resp 18 05/18/20 17:01 BP 134/80 05/18/20 17:01 Pulse Ox 96 05/18/20 17:01 Weight: 90.718 kg - Exam General: Alert, Oriented, Cooperative HEENT: EOMI Neck: Supple, Trachea Midline Lungs: Clear to Auscultation, Normal Respiratory Effort Cardiovascular: Regular Rate, Regular Rhythm GI/Abdominal Exam: Soft, Non-Tender Back Exam: Normal Inspection Extremities: Other (Right upper extremity: 5/5 hand strength however some issues with keeping both arms at horizontal level for prolonged period, sensation decreased over right arm/forearm ; surgical scars apprecaited over right upper extremity consistent w. crush injury w. revision therafter ) Skin: Warm, Dry, Intact Neurological: Cranial Nerves Intact, Strength Equal Bilateral, Normal Speech, Normal Tone, Focal Deficit. No: Sensation Intact Neuro Extensive - Mental Status: Alert, Oriented x3, Normal Mood/Affect Neuro Extensive - Motor, Sensory, Reflexes: Normal Gait Psychiatric: Alert, Normal Affect, Normal Mood - Patient Data Lab Results Last 24 hrs: Laboratory Results - last 24 hr 05/18/20 05/18/20 05/18/20 Range/Units 17:03 17:03 17:03 WBC 6.45 (4.0-11.0) K/uL RBC 4.55 (4.50-5.90) M/uL Hgb 13.2 (13.0-17.0) g/dL Hct 39.3 (38.0-50.0) % MCV 86.4 (80.0-98.0) fL MCH 29.0 (27.0-32.0) pg MCHC 33.6 (31.0-37.0) g/dL RDW Std Deviation 41.3 (28.0-62.0) fl RDW Coeff of Ekaterina 13 (11.0-15.0) % Plt Count 150 (150-400) K/uL MPV 9.70 (7.40-12.00) fL Neut % (Auto) 47.8 L (48.0-80.0) % Lymph % (Auto) 40.5 H (16.0-40.0) % [place] % (Auto) 9.5 (0.0-15.0) % Eos % (Auto) 2.0 (0.0-7.0) % Baso % (Auto) 0.2 (0.0-1.5) % Neut # (Auto) 3.1 (1.4-5.7) K/uL Lymph # (Auto) 2.6 H (0.6-2.4) K/uL [place] # (Auto) 0.6 (0.0-0.8) K/uL Eos # (Auto) 0.1 (0.0-0.7) K/uL Baso # (Auto) 0.0 (0.0-0.1) K/uL Nucleated RBC % 0.0 /100WBC Nucleated RBCs # 0 K/uL INR 1.07 APTT 25.4 (18.6-31.3) SEC Sodium 141 (136-148) mmol/L Potassium 3.6 (3.5-5.1) mmol/L Chloride 103 (98-107) mmol/L Carbon Dioxide 29.7 (21.0-32.0) mmol/L BUN 8 (7.0-18.0) mg/dL Creatinine 1.0 (0.8-1.3) mg/dL Est Cr Clr Drug Dosing 97.31 mL/min Estimated GFR (MDRD) > 60.0 ml/min Glucose 117 H (74-106) mg/dL Calcium 8.6 (8.5-10.1) mg/dL Total Bilirubin 0.8 (0.2-1.0) mg/dL AST 57 H (15-37) IU/L ALT 48 (14-63) IU/L Alkaline Phosphatase 76 (46-116) U/L Creatine Kinase (26-308) U/L Troponin I 0.259 H* (0.000-0.056) ng/mL C-Reactive Protein (0.00-0.90) mg/dL Total Protein 6.7 (6.4-8.2) g/dL Albumin 3.5 (3.4-5.0) g/dL Globulin 3.2 (2.6-4.0) g/dL Albumin/Globulin Ratio 1.1 (0.9-1.6) TSH 3rd Generation 2.39 (0.36-3.74) uIU/mL 05/18/20 Range/Units 17:03 WBC (4.0-11.0) K/uL RBC (4.50-5.90) M/uL Hgb (13.0-17.0) g/dL Hct (38.0-50.0) % MCV (80.0-98.0) fL MCH (27.0-32.0) pg MCHC (31.0-37.0) g/dL RDW Std Deviation (28.0-62.0) fl RDW Coeff of Ekaterina (11.0-15.0) % Plt Count (150-400) K/uL MPV (7.40-12.00) fL Neut % (Auto) (48.0-80.0) % Lymph % (Auto) (16.0-40.0) % [place] % (Auto) (0.0-15.0) % Eos % (Auto) (0.0-7.0) % Baso % (Auto) (0.0-1.5) % Neut # (Auto) (1.4-5.7) K/uL Lymph # (Auto) (0.6-2.4) K/uL [place] # (Auto) (0.0-0.8) K/uL Eos # (Auto) (0.0-0.7) K/uL Baso # (Auto) (0.0-0.1) K/uL Nucleated RBC % /100WBC Nucleated RBCs # K/uL INR APTT (18.6-31.3) SEC Sodium (136-148) mmol/L Potassium (3.5-5.1) mmol/L Chloride (98-107) mmol/L Carbon Dioxide (21.0-32.0) mmol/L BUN (7.0-18.0) mg/dL Creatinine (0.8-1.3) mg/dL Est Cr Clr Drug Dosing mL/min Estimated GFR (MDRD) ml/min Glucose (74-106) mg/dL Calcium (8.5-10.1) mg/dL Total Bilirubin (0.2-1.0) mg/dL AST (15-37) IU/L ALT (14-63) IU/L Alkaline Phosphatase (46-116) U/L Creatine Kinase 784 H (26-308) U/L Troponin I (0.000-0.056) ng/mL C-Reactive Protein 10.40 H (0.00-0.90) mg/dL Total Protein (6.4-8.2) g/dL Albumin (3.4-5.0) g/dL Globulin (2.6-4.0) g/dL Albumin/Globulin Ratio (0.9-1.6) TSH 3rd Generation (0.36-3.74) uIU/mL Result Diagrams: 05/18/20 17:03 05/18/20 17:03 Sepsis Event Note - Evaluation Sepsis Screening Result: No Definite Risk - Focused Exam Vital Signs: Vital Signs Temp Pulse Resp BP Pulse Ox 05/18/20 17:01 96 F L 91 18 134/80 96 Problem List Initiated/Reviewed/Updated: Yes Orders Last 24hrs: Active Orders 24 hr Category Date Time Status Admission Status [Patient Status] [ADT] Stat ADT 05/18/20 18:51 Active Assess Neurological Status [RC] ASDIRECTED Care 05/18/20 17:08 Active Bedrest [RC] ASDIRECTED Care 05/18/20 17:08 Active Cardiac Monitoring [RC] . DIRECTED Care 05/18/20 17:08 Active EKG Documentation Completion [RC] STAT Care 05/18/20 17:08 Active Height and Weight [RC] UPON Care 05/18/20 17:08 Active Initiate Acute Stroke Protocol [RC] STAT Care 05/18/20 17:08 Active NIH Stroke Scale [RC] ASDIRECTED Care 05/18/20 17:08 Active Nursing Bedside Swallow Screen [RC] ASDIRECTED Care 05/18/20 17:08 Active Oxygen Therapy [RC] ASDIRECTED Care 05/18/20 17:08 Active Stroke Education, General [RC] Click to Edit Care 05/18/20 17:08 Active Vital Signs [RC] Q15M Care 05/18/20 17:08 Active CORONAVIRUS COVID-19 PCR PHL Stat Lab 05/18/20 18:18 Ordered SEDIMENTATION RATE AUTO [HEME] Stat Lab 05/18/20 17:03 Received Sodium Chloride 0.9% [Normal Saline] Med 05/18/20 17:08 Active 10 ml IV ASDIRECTED PRN Sodium Chloride 0.9% [Saline Flush] Med 05/18/20 17:08 Active 10 ml FLUSH ASDIRECTED PRN Sodium Chloride 0.9% [Saline Flush] Med 05/18/20 17:08 Active 2.5 ml FLUSH ASDIRECTED PRN Sodium Chloride 0.9% [Saline Flush] Med 05/18/20 17:08 Active 2.5 ml FLUSH ASDIRECTED PRN Peripheral IV Insertion Adult [OM.PC] Stat Oth 05/18/20 17:08 Ordered Peripheral IV Insertion Adult [OM.PC] Stat Oth 05/18/20 17:08 Ordered Resuscitation Status Stat Resus Stat 05/18/20 17:08 Ordered Medication Orders Sodium Chloride (Saline Flush) 2.5 ml FLUSH ASDIRECTED PRN PRN Reason: Keep Vein Open Last Admin: 05/18/20 18:45 Dose: 2.5 ml Documented by: BRITTANY Sodium Chloride (Saline Flush) 10 ml FLUSH ASDIRECTED PRN PRN Reason: Keep Vein Open Last Admin: 05/18/20 18:45 Dose: 10 ml Documented by: BRITTANY Sodium Chloride (Saline Flush) 2.5 ml FLUSH ASDIRECTED PRN PRN Reason: Keep Vein Open Last Admin: 05/18/20 18:45 Dose: 2.5 ml Documented by: BRITTANY Sodium Chloride (Normal Saline) 10 ml IV ASDIRECTED PRN PRN Reason: IV Use Assessment/Plan Comment:: Assessment: 1. New onset upper extremity paresthesia : concerns for TIA/Stroke 2. Elevated Troponin in setting of new onset upper extremity weakness 3. PMH: CRPS, Hyperlipidemia Plan: Admit to observation. Full code. I/o's per routine. GI prophylaxis: Pantoprazole 40. DVT prophylaxis: SCD (received ASA x 1 ) Telemetry. Diet: regular 1. New onset change in upper extremity sensation: confounding story with previous history of crush injury and recent increase use of opioids and sleeping for prolonged period of time since discharge from other/outside facility. Head CT in ED unremarkable for anything acute however elevated troponin and increased CPK; telemetry ordered. EKG: sinus tachycardia; no ST elevations/depressions noted. CXR negative. Will repeat troponin at 9pm tonight; if increasing will consider transfer; if continuing to trend down; will order a MRI brain w/wo contrast; CTA neck, ECHO and perform neuro checks. Elevated inflammatory markers Repeat CBC and CMP in AM Will also order a Utox to ensure no illicit drugs being culprit of symptoms COVID negative Elevated CPK: start gentle hydration 2. PMH: hold other pain medication until Troponin downtrending
[2020-05-18] MEDS: Sodium Chloride 0.9% 1,000 ML IV ONE ×2 (20:06→21:52)
[2020-05-19 03:30] LABS: BLOOD UREA NITROGEN,BUN 7 mg/dL (7.0-18.0); CARBON DIOXIDE,CO2 29.3 mmol/L (21.0-32.0); CHLORIDE,CL 105 mmol/L (98-107); GLUCOSE RANDOM 103 mg/dL (74-106); POTASSIUM,K 3.9 mmol/L (3.5-5.1); SODIUM,NA 142 mmol/L (136-148)
[2020-05-19] MEDS ORDERED: Gadobenate Dimeglumine 529 MG/ML 20 ML SDV IVPUSH STA (10:19)
--- NOTE | 2020-05-19 12:10 | MR ---
MRI brain (without and with intravenous contrast) Technique: T1 sagittal and coronal; T1, T2, FLAIR, and diffusion axial; T1 fat-suppressed postcontrast axial, coronal and sagittal images through the brain were obtained. Comparison: Prior head CT exam of 05/18/20. Findings: Asymmetric size of the ventricles are seen which is stable from prior head CT exam and believed to be a normal variant. Normal signal void is seen within the major cerebral arteries within the skull base. No acute diffusion abnormalities are seen. Minimal small area of increased signal is seen within the subcortical white matter within the right parietal region. No other abnormal signal is seen within the brain parenchyma. Postcontrast images show no significant contrast within the brain and please correlate if contrast was injected as well as please rule out any extravasation. Impression: 1. Asymmetric size of the lateral ventricles which I believe is a normal variant. 2. Minimal area of increased signal within the subcortical white matter within the right parietal region. Since this is the only area of abnormal signal, this finding is felt to be incidental. 3. No acute diffusion abnormalities are seen. 4. No contrast is noted on the postcontrast images raising the possibility of lack of injection or contrast extravasation. Diagnostic code #2 This report was dictated in MDT
--- NOTE | 2020-05-19 12:10 | MR ---
MR angiogram of neck (without and with intravenous contrast) Technique: Phase contrast MR angiogram study was obtained centered to the carotid bifurcation. Intravenous gadolinium was given and post contrast angiogram study with multiple MIP images obtained. Findings: Both brachiocephalic and subclavian arteries are widely patent. Both common carotid arteries are widely patent. Carotid bulbs appear within normal limits. Internal carotid arteries are patent. Proximal external carotid arteries are patent. Both vertebral arteries are patent with dominant left vertebral artery. Narrowing is seen of the distal right vertebral artery believed to be due to its small size resulting in less flow. Impression: 1. Smaller right vertebral artery than left which I believe is a normal variant. 2. Other portions of the MR angiogram of the neck are unremarkable. Diagnostic code #2 This report was dictated in MDT
--- NOTE | 2020-05-19 14:05 | PCM.PN ---
- General Info Date of Service: 05/19/20 Subjective Update: Bedside: endorses "pins and needle" s/sx have improved tremendously and is only affecting his right hand ; deneis any CP, SOB or other acute signs of distress. Functional Status: Reports: Pain Controlled - Review of Systems General: Reports: No Symptoms HEENT: Reports: No Symptoms Pulmonary: Reports: No Symptoms Cardiovascular: Reports: No Symptoms Gastrointestinal: Reports: No Symptoms Musculoskeletal: Reports: Other (hand paresthsia, Right ) Skin: Reports: No Symptoms Neurological: Reports: Paresthesia Psychiatric: Reports: No Symptoms - Patient Data Vitals - Most Recent: Last Vital Signs Temp 97.9 F 05/19/20 04:00 Pulse 73 05/19/20 04:00 Resp 16 05/19/20 04:00 BP 118/78 05/19/20 04:00 Pulse Ox 96 05/19/20 04:00 Weight - Most Recent: 90.718 kg I&O - Last 24 Hours: Intake & Output 05/18/20 05/19/20 05/19/20 22:59 06:59 14:59 Intake Total 1040 Output Total 1250 Balance -210 Lab Results Last 24 Hours: Laboratory Results - last 24 hr 05/18/20 05/18/20 05/18/20 Range/Units 17:03 17:03 17:03 WBC 6.45 (4.0-11.0) K/uL RBC 4.55 (4.50-5.90) M/uL Hgb 13.2 (13.0-17.0) g/dL Hct 39.3 (38.0-50.0) % MCV 86.4 (80.0-98.0) fL MCH 29.0 (27.0-32.0) pg MCHC 33.6 (31.0-37.0) g/dL RDW Std Deviation 41.3 (28.0-62.0) fl RDW Coeff of Ekaterina 13 (11.0-15.0) % Plt Count 150 (150-400) K/uL MPV 9.70 (7.40-12.00) fL Neut % (Auto) 47.8 L (48.0-80.0) % Lymph % (Auto) 40.5 H (16.0-40.0) % Sawyer % (Auto) 9.5 (0.0-15.0) % Eos % (Auto) 2.0 (0.0-7.0) % Baso % (Auto) 0.2 (0.0-1.5) % Neut # (Auto) 3.1 (1.4-5.7) K/uL Lymph # (Auto) 2.6 H (0.6-2.4) K/uL Sawyer # (Auto) 0.6 (0.0-0.8) K/uL Eos # (Auto) 0.1 (0.0-0.7) K/uL Baso # (Auto) 0.0 (0.0-0.1) K/uL Nucleated RBC % 0.0 /100WBC Nucleated RBCs # 0 K/uL ESR (0-14) mm/hr INR 1.07 APTT 25.4 (18.6-31.3) SEC Sodium 141 (136-148) mmol/L Potassium 3.6 (3.5-5.1) mmol/L Chloride 103 (98-107) mmol/L Carbon Dioxide 29.7 (21.0-32.0) mmol/L BUN 8 (7.0-18.0) mg/dL Creatinine 1.0 (0.8-1.3) mg/dL Est Cr Clr Drug Dosing 97.31 mL/min Estimated GFR (MDRD) > 60.0 ml/min Glucose 117 H (74-106) mg/dL Calcium 8.6 (8.5-10.1) mg/dL Total Bilirubin 0.8 (0.2-1.0) mg/dL AST 57 H (15-37) IU/L ALT 48 (14-63) IU/L Alkaline Phosphatase 76 (46-116) U/L Creatine Kinase (26-308) U/L Troponin I 0.259 H* (0.000-0.056) ng/mL C-Reactive Protein (0.00-0.90) mg/dL Total Protein 6.7 (6.4-8.2) g/dL Albumin 3.5 (3.4-5.0) g/dL Globulin 3.2 (2.6-4.0) g/dL Albumin/Globulin Ratio 1.1 (0.9-1.6) TSH 3rd Generation 2.39 (0.36-3.74) uIU/mL Urine Opiates Screen (NEGATIVE) Ur Oxycodone Screen (NEGATIVE) Urine Methadone Screen (NEGATIVE) Ur Barbiturates Screen (NEGATIVE) Ur Phencyclidine Scrn (NEGATIVE) Ur Amphetamine Screen (NEGATIVE) U Methamphetamines Scrn (NEGATIVE) U Benzodiazepines Scrn (NEGATIVE) U Cocaine Metab Screen (NEGATIVE) U Marijuana (THC) Screen (NEGATIVE) COVID-19 (DAVINA) (NEGATIVE) 05/18/20 05/18/20 05/18/20 Range/Units 17:03 17:03 18:57 WBC (4.0-11.0) K/uL RBC (4.50-5.90) M/uL Hgb (13.0-17.0) g/dL Hct (38.0-50.0) % MCV (80.0-98.0) fL MCH (27.0-32.0) pg MCHC (31.0-37.0) g/dL RDW Std Deviation (28.0-62.0) fl RDW Coeff of Ekaterina (11.0-15.0) % Plt Count (150-400) K/uL MPV (7.40-12.00) fL Neut % (Auto) (48.0-80.0) % Lymph % (Auto) (16.0-40.0) % Sawyer % (Auto) (0.0-15.0) % Eos % (Auto) (0.0-7.0) % Baso % (Auto) (0.0-1.5) % Neut # (Auto) (1.4-5.7) K/uL Lymph # (Auto) (0.6-2.4) K/uL Sawyer # (Auto) (0.0-0.8) K/uL Eos # (Auto) (0.0-0.7) K/uL Baso # (Auto) (0.0-0.1) K/uL Nucleated RBC % /100WBC Nucleated RBCs # K/uL ESR 18 H (0-14) mm/hr INR APTT (18.6-31.3) SEC Sodium (136-148) mmol/L Potassium (3.5-5.1) mmol/L Chloride (98-107) mmol/L Carbon Dioxide (21.0-32.0) mmol/L BUN (7.0-18.0) mg/dL Creatinine (0.8-1.3) mg/dL Est Cr Clr Drug Dosing mL/min Estimated GFR (MDRD) ml/min Glucose (74-106) mg/dL Calcium (8.5-10.1) mg/dL Total Bilirubin (0.2-1.0) mg/dL AST (15-37) IU/L ALT (14-63) IU/L Alkaline Phosphatase (46-116) U/L Creatine Kinase 784 H (26-308) U/L Troponin I (0.000-0.056) ng/mL C-Reactive Protein 10.40 H (0.00-0.90) mg/dL Total Protein (6.4-8.2) g/dL Albumin (3.4-5.0) g/dL Globulin (2.6-4.0) g/dL Albumin/Globulin Ratio (0.9-1.6) TSH 3rd Generation (0.36-3.74) uIU/mL Urine Opiates Screen (NEGATIVE) Ur Oxycodone Screen (NEGATIVE) Urine Methadone Screen (NEGATIVE) Ur Barbiturates Screen (NEGATIVE) Ur Phencyclidine Scrn (NEGATIVE) Ur Amphetamine Screen (NEGATIVE) U Methamphetamines Scrn (NEGATIVE) U Benzodiazepines Scrn (NEGATIVE) U Cocaine Metab Screen (NEGATIVE) U Marijuana (THC) Screen (NEGATIVE) COVID-19 (DAVINA) NEGATIVE (NEGATIVE) 05/18/20 05/18/20 05/19/20 Range/Units 20:00 22:50 02:58 WBC 4.71 (4.0-11.0) K/uL RBC 4.40 L (4.50-5.90) M/uL Hgb 12.5 L (13.0-17.0) g/dL Hct 37.8 L (38.0-50.0) % MCV 85.9 (80.0-98.0) fL MCH 28.4 (27.0-32.0) pg MCHC 33.1 (31.0-37.0) g/dL RDW Std Deviation 41.2 (28.0-62.0) fl RDW Coeff of Ekaterina 13 (11.0-15.0) % Plt Count 152 (150-400) K/uL MPV 9.60 (7.40-12.00) fL Neut % (Auto) 46.1 L (48.0-80.0) % Lymph % (Auto) 40.1 H (16.0-40.0) % Sawyer % (Auto) 9.6 (0.0-15.0) % Eos % (Auto) 3.8 (0.0-7.0) % Baso % (Auto) 0.4 (0.0-1.5) % Neut # (Auto) 2.2 (1.4-5.7) K/uL Lymph # (Auto) 1.9 (0.6-2.4) K/uL Sawyer # (Auto) 0.5 (0.0-0.8) K/uL Eos # (Auto) 0.2 (0.0-0.7) K/uL Baso # (Auto) 0.0 (0.0-0.1) K/uL Nucleated RBC % 0.0 /100WBC Nucleated RBCs # 0 K/uL ESR (0-14) mm/hr INR APTT (18.6-31.3) SEC Sodium (136-148) mmol/L Potassium (3.5-5.1) mmol/L Chloride (98-107) mmol/L Carbon Dioxide (21.0-32.0) mmol/L BUN (7.0-18.0) mg/dL Creatinine (0.8-1.3) mg/dL Est Cr Clr Drug Dosing mL/min Estimated GFR (MDRD) ml/min Glucose (74-106) mg/dL Calcium (8.5-10.1) mg/dL Total Bilirubin (0.2-1.0) mg/dL AST (15-37) IU/L ALT (14-63) IU/L Alkaline Phosphatase (46-116) U/L Creatine Kinase (26-308) U/L Troponin I 0.218 H* (0.000-0.056) ng/mL C-Reactive Protein (0.00-0.90) mg/dL Total Protein (6.4-8.2) g/dL Albumin (3.4-5.0) g/dL Globulin (2.6-4.0) g/dL Albumin/Globulin Ratio (0.9-1.6) TSH 3rd Generation (0.36-3.74) uIU/mL Urine Opiates Screen NEGATIVE (NEGATIVE) Ur Oxycodone Screen POSITIVE (NEGATIVE) Urine Methadone Screen NEGATIVE (NEGATIVE) Ur Barbiturates Screen NEGATIVE (NEGATIVE) Ur Phencyclidine Scrn NEGATIVE (NEGATIVE) Ur Amphetamine Screen NEGATIVE (NEGATIVE) U Methamphetamines Scrn NEGATIVE (NEGATIVE) U Benzodiazepines Scrn NEGATIVE (NEGATIVE) U Cocaine Metab Screen NEGATIVE (NEGATIVE) U Marijuana (THC) Screen NEGATIVE (NEGATIVE) COVID-19 (DAVINA) (NEGATIVE) 05/19/20 05/19/20 05/19/20 Range/Units 02:58 02:58 11:27 WBC (4.0-11.0) K/uL RBC (4.50-5.90) M/uL Hgb (13.0-17.0) g/dL Hct (38.0-50.0) % MCV (80.0-98.0) fL MCH (27.0-32.0) pg MCHC (31.0-37.0) g/dL RDW Std Deviation (28.0-62.0) fl RDW Coeff of Ekaterina (11.0-15.0) % Plt Count (150-400) K/uL MPV (7.40-12.00) fL Neut % (Auto) (48.0-80.0) % Lymph % (Auto) (16.0-40.0) % Sawyer % (Auto) (0.0-15.0) % Eos % (Auto) (0.0-7.0) % Baso % (Auto) (0.0-1.5) % Neut # (Auto) (1.4-5.7) K/uL Lymph # (Auto) (0.6-2.4) K/uL Sawyer # (Auto) (0.0-0.8) K/uL Eos # (Auto) (0.0-0.7) K/uL Baso # (Auto) (0.0-0.1) K/uL Nucleated RBC % /100WBC Nucleated RBCs # K/uL ESR (0-14) mm/hr INR APTT (18.6-31.3) SEC Sodium 142 (136-148) mmol/L Potassium 3.9 (3.5-5.1) mmol/L Chloride 105 (98-107) mmol/L Carbon Dioxide 29.3 (21.0-32.0) mmol/L BUN 7 (7.0-18.0) mg/dL Creatinine 0.9 (0.8-1.3) mg/dL Est Cr Clr Drug Dosing 108.13 mL/min Estimated GFR (MDRD) > 60.0 ml/min Glucose 103 (74-106) mg/dL Calcium 8.3 L (8.5-10.1) mg/dL Total Bilirubin 0.6 (0.2-1.0) mg/dL AST 47 H (15-37) IU/L ALT 47 (14-63) IU/L Alkaline Phosphatase 76 (46-116) U/L Creatine Kinase (26-308) U/L Troponin I 0.156 H* 0.101 H* (0.000-0.056) ng/mL C-Reactive Protein (0.00-0.90) mg/dL Total Protein 6.2 L (6.4-8.2) g/dL Albumin 3.3 L (3.4-5.0) g/dL Globulin 2.9 (2.6-4.0) g/dL Albumin/Globulin Ratio 1.1 (0.9-1.6) TSH 3rd Generation (0.36-3.74) uIU/mL Urine Opiates Screen (NEGATIVE) Ur Oxycodone Screen (NEGATIVE) Urine Methadone Screen (NEGATIVE) Ur Barbiturates Screen (NEGATIVE) Ur Phencyclidine Scrn (NEGATIVE) Ur Amphetamine Screen (NEGATIVE) U Methamphetamines Scrn (NEGATIVE) U Benzodiazepines Scrn (NEGATIVE) U Cocaine Metab Screen (NEGATIVE) U Marijuana (THC) Screen (NEGATIVE) COVID-19 (DAVINA) (NEGATIVE) Med Orders - Current: Current Medications Sodium Chloride (Saline Flush) 2.5 ml FLUSH ASDIRECTED PRN PRN Reason: Keep Vein Open Last Admin: 05/18/20 18:45 Dose: 2.5 ml Documented by: Sodium Chloride (Saline Flush) 10 ml FLUSH ASDIRECTED PRN PRN Reason: Keep Vein Open Last Admin: 05/18/20 18:45 Dose: 10 ml Documented by: Sodium Chloride (Saline Flush) 2.5 ml FLUSH ASDIRECTED PRN PRN Reason: Keep Vein Open Last Admin: 05/18/20 18:45 Dose: 2.5 ml Documented by: Sodium Chloride (Normal Saline) 10 ml IV ASDIRECTED PRN PRN Reason: IV Use Discontinued Medications Aspirin (Aspirin) 324 mg PO ONETIME ONE Stop: 05/18/20 18:09 Last Admin: 05/18/20 18:44 Dose: 324 mg Documented by: Gadobenate Dimeglumine (Multihance) 20 ml IVPUSH ONETIME STA Stop: 05/19/20 10:20 Last Admin: 05/19/20 10:20 Dose: 19 ml Documented by: Sodium Chloride (Normal Saline) 1,000 mls @ 120 mls/hr IV CONTINUOUS ONE Stop: 05/19/20 04:04 Last Admin: 05/18/20 21:52 Dose: 120 mls/hr Documented by: - Exam Quality Assessment: No: Supplemental Oxygen General: Alert, Oriented, Cooperative, No Acute Distress HEENT: Pupils Equal, Pupils Reactive, EOMI Neck: Supple Lungs: Clear to Auscultation, Normal Respiratory Effort Cardiovascular: Regular Rate, Regular Rhythm GI/Abdominal Exam: Soft, Non-Tender Extremities: Normal Inspection Skin: Warm Neurological: No New Focal Deficit, Normal Gait, Normal Speech, Normal Tone, Strength Equal Bilateral, Reflexes Equal Bilateral, Cranial Nerves Intact Psy/Mental Status: Alert, Normal Affect, Normal Mood Sepsis Event Note - Evaluation Sepsis Screening Result: No Definite Risk - Focused Exam Vital Signs: Vital Signs Temp Pulse Resp BP Pulse Ox 05/19/20 04:00 97.9 F 73 16 118/78 96 - Problem List Review Problem List Initiated/Reviewed/Updated: Yes - My Orders Last 24 Hours: My Active Orders 05/18/20 19:34 Admission Status [Patient Status] [ADT] Routine 05/18/20 19:36 Intake and Output [RC] ASDIRECTED Vital Signs [RC] PER UNIT ROUTINE 05/18/20 19:48 Neuro Check [RC] BID 05/19/20 Breakfast Regular Diet [DIET] 05/19/20 11:35 Echo Comp wo Cont [US] Urgent 05/20/20 05:11 CBC WITH AUTO DIFF [HEME] AM COMPREHENSIVE METABOLIC PN,CMP [CHEM] AM 05/21/20 05:11 CBC WITH AUTO DIFF [HEME] AM COMPREHENSIVE METABOLIC PN,CMP [CHEM] AM - Plan Plan:: Assessment: 1. New onset upper extremity paresthesia : concerns for TIA/Stroke 2. Elevated Troponin in setting of new onset upper extremity weakness 3. PMH: CRPS, Hyperlipidemia Plan: Admit to observation. Full code. I/o's per routine. GI prophylaxis: Pantoprazole 40. DVT prophylaxis: SCD (received ASA x 1 ) Telemetry. Diet: regular 1. New onset change in upper extremity sensation: MRI ordered this AM to evaluate for any ischemic etiologies/central Symptoms improved and possibly from prolonged immobilizations; troponin is still downtrending but concerns for cardiac etiologies are still being investigated.; Cardiac Echo ordered, need for outpatient Stress test will also be discussed. pt asymptomatic at this time but concerns for vasculitis/myocarditis are part of our differential Awaiting records from [facility] to confirm other laboratory findings UTOX + only for prescribed opioids; no Drugs of abuse Mildly elevated CPK; dc IV fluids as pt. is tolerating PO intake well 2. PMH: hold other pain medication
[2020-05-19 18:41] VITALS: BP 132/79; PULSE 78
--- NOTE | 2020-05-19 18:51 | PCM.DCSUM1 ---
Discharge Summary - Hospital Course Free Text/Narrative:: Hospital course: Patient is a 35-year-old male with a significant past medical history of chronic regional pain syndrome secondary to crush injury incurred on 02/12/2015 with multiple surgeries of right upper extremities x6 including right ulnar nerve repair, flexor muscle and tendon repair x6, cubital tunnel release and interventional and adjunctive therapies including oxycodone therapy and topical ketamine: Presenting this afternoon after experiencing right upper extremity weakness since Monday. Patient was seen with flank pain and went to [place] on Monday and was treated for kidney stones; was provided increasing pain medication (despite being on home pain medications) and subsequently went to sleep Monday around 7 PM and woke up Monday late afternoon with pins and needle sensation of right upper extremity. Concerned about stroke/TIA : presented to ED ED course; ASA 325 provided. Stroke code called. EKG showed sinus tachycardia CT scan of head; no acute intracranial bleed however developmental changes of the left ventricle appreciated. Chest x-ray negative Troponin mild marginally elevated at 0.259; patient however denies any chest pain, shortness of breath, palpitations Bedside; patient not endorsing any new pain but is still complaining of right upper extremity paresthesia denies any weakness, CP, palpitations, SOB, RAMOS and or recent LOC Hospital course: Symptoms of right upper extremity improved significantly w. exception of symptoms in hand ; denies thghourout stay any CP, palpitations, SOB or dizziness. MRI brain did not show any significant ischemic foci, lesions or massless. Repeat troponin showed to be downtrending. Echocardiogram ordered; awaiting results. P.t requested discharge and was asymptomatic. Denies any new pains/or concerns. Follow up appointment with PCP and Cardiology set up in [place] Discussed to return to ED immediately if CP, SOB, palpitations or any similar symptoms to prio admission noted. Discharged in stable condition . Follow up appointments set up in process. - Discharge Data Discharge Date: 05/20/20 Discharge Disposition: Home, Self-Care 01 Condition: Stable - Referral to Home Health Primary Care Physician: Vika Bustos NP - Discharge Plan *PRESCRIPTION DRUG MONITORING PROGRAM REVIEWED*: Not Applicable *COPY OF PRESCRIPTION DRUG MONITORING REPORT IN PATIENT BERNA: Not Applicable Home Medications: Home Meds Cholecalciferol (Vitamin D3) [Vitamin D] 5,000 unit PO DAILY 05/27/15 [History] traMADol [Ultram] 50 mg PO TID 07/21/19 [History] Acetaminophen/HYDROcodone [[place] 325-5 MG] 1 - 2 tab PO Q6H #12 tablet 12/03/19 [Rx] Clindamycin HCl 300 mg PO TID #21 capsule 12/03/19 [Rx] Patient Handouts: Nonspecific Chest Pain, Adult, [id number] - Discharge Summary/Plan Comment DC Time >30 min.: No - Patient Data Vitals - Most Recent: Last Vital Signs Temp 97.4 F 05/19/20 18:40 Pulse 78 05/19/20 18:40 Resp 16 05/19/20 18:40 BP 132/79 05/19/20 18:40 Pulse Ox 97 05/19/20 18:40 Weight - Most Recent: 90.718 kg I&O - Last 24 hours: Intake & Output 05/19/20 05/19/20 05/19/20 06:59 14:59 22:59 Intake Total 1040 1200 Output Total 1250 890 Balance -210 310 Lab Results - Last 24 hrs: Laboratory Results - last 24 hr 05/18/20 05/18/20 05/18/20 Range/Units 17:03 18:57 20:00 WBC (4.0-11.0) K/uL RBC (4.50-5.90) M/uL Hgb (13.0-17.0) g/dL Hct (38.0-50.0) % MCV (80.0-98.0) fL MCH (27.0-32.0) pg MCHC (31.0-37.0) g/dL RDW Std Deviation (28.0-62.0) fl RDW Coeff of Ekaterina (11.0-15.0) % Plt Count (150-400) K/uL MPV (7.40-12.00) fL Neut % (Auto) (48.0-80.0) % Lymph % (Auto) (16.0-40.0) % Sabine % (Auto) (0.0-15.0) % Eos % (Auto) (0.0-7.0) % Baso % (Auto) (0.0-1.5) % Neut # (Auto) (1.4-5.7) K/uL Lymph # (Auto) (0.6-2.4) K/uL Sabine # (Auto) (0.0-0.8) K/uL Eos # (Auto) (0.0-0.7) K/uL Baso # (Auto) (0.0-0.1) K/uL Nucleated RBC % /100WBC Nucleated RBCs # K/uL ESR 18 H (0-14) mm/hr Sodium (136-148) mmol/L Potassium (3.5-5.1) mmol/L Chloride (98-107) mmol/L Carbon Dioxide (21.0-32.0) mmol/L BUN (7.0-18.0) mg/dL Creatinine (0.8-1.3) mg/dL Est Cr Clr Drug Dosing mL/min Estimated GFR (MDRD) ml/min Glucose (74-106) mg/dL Calcium (8.5-10.1) mg/dL Total Bilirubin (0.2-1.0) mg/dL AST (15-37) IU/L ALT (14-63) IU/L Alkaline Phosphatase (46-116) U/L Troponin I 0.218 H* (0.000-0.056) ng/mL Total Protein (6.4-8.2) g/dL Albumin (3.4-5.0) g/dL Globulin (2.6-4.0) g/dL Albumin/Globulin Ratio (0.9-1.6) Urine Opiates Screen (NEGATIVE) Ur Oxycodone Screen (NEGATIVE) Urine Methadone Screen (NEGATIVE) Ur Barbiturates Screen (NEGATIVE) Ur Phencyclidine Scrn (NEGATIVE) Ur Amphetamine Screen (NEGATIVE) U Methamphetamines Scrn (NEGATIVE) U Benzodiazepines Scrn (NEGATIVE) U Cocaine Metab Screen (NEGATIVE) U Marijuana (THC) Screen (NEGATIVE) COVID-19 (DAVINA) NEGATIVE (NEGATIVE) 05/18/20 05/19/20 05/19/20 Range/Units 22:50 02:58 02:58 WBC 4.71 (4.0-11.0) K/uL RBC 4.40 L (4.50-5.90) M/uL Hgb 12.5 L (13.0-17.0) g/dL Hct 37.8 L (38.0-50.0) % MCV 85.9 (80.0-98.0) fL MCH 28.4 (27.0-32.0) pg MCHC 33.1 (31.0-37.0) g/dL RDW Std Deviation 41.2 (28.0-62.0) fl RDW Coeff of Ekaterina 13 (11.0-15.0) % Plt Count 152 (150-400) K/uL MPV 9.60 (7.40-12.00) fL Neut % (Auto) 46.1 L (48.0-80.0) % Lymph % (Auto) 40.1 H (16.0-40.0) % Sabine % (Auto) 9.6 (0.0-15.0) % Eos % (Auto) 3.8 (0.0-7.0) % Baso % (Auto) 0.4 (0.0-1.5) % Neut # (Auto) 2.2 (1.4-5.7) K/uL Lymph # (Auto) 1.9 (0.6-2.4) K/uL Sabine # (Auto) 0.5 (0.0-0.8) K/uL Eos # (Auto) 0.2 (0.0-0.7) K/uL Baso # (Auto) 0.0 (0.0-0.1) K/uL Nucleated RBC % 0.0 /100WBC Nucleated RBCs # 0 K/uL ESR (0-14) mm/hr Sodium 142 (136-148) mmol/L Potassium 3.9 (3.5-5.1) mmol/L Chloride 105 (98-107) mmol/L Carbon Dioxide 29.3 (21.0-32.0) mmol/L BUN 7 (7.0-18.0) mg/dL Creatinine 0.9 (0.8-1.3) mg/dL Est Cr Clr Drug Dosing 108.13 mL/min Estimated GFR (MDRD) > 60.0 ml/min Glucose 103 (74-106) mg/dL Calcium 8.3 L (8.5-10.1) mg/dL Total Bilirubin 0.6 (0.2-1.0) mg/dL AST 47 H (15-37) IU/L ALT 47 (14-63) IU/L Alkaline Phosphatase 76 (46-116) U/L Troponin I (0.000-0.056) ng/mL Total Protein 6.2 L (6.4-8.2) g/dL Albumin 3.3 L (3.4-5.0) g/dL Globulin 2.9 (2.6-4.0) g/dL Albumin/Globulin Ratio 1.1 (0.9-1.6) Urine Opiates Screen NEGATIVE (NEGATIVE) Ur Oxycodone Screen POSITIVE (NEGATIVE) Urine Methadone Screen NEGATIVE (NEGATIVE) Ur Barbiturates Screen NEGATIVE (NEGATIVE) Ur Phencyclidine Scrn NEGATIVE (NEGATIVE) Ur Amphetamine Screen NEGATIVE (NEGATIVE) U Methamphetamines Scrn NEGATIVE (NEGATIVE) U Benzodiazepines Scrn NEGATIVE (NEGATIVE) U Cocaine Metab Screen NEGATIVE (NEGATIVE) U Marijuana (THC) Screen NEGATIVE (NEGATIVE) COVID-19 (DAVINA) (NEGATIVE) 05/19/20 05/19/20 Range/Units 02:58 11:27 WBC (4.0-11.0) K/uL RBC (4.50-5.90) M/uL Hgb (13.0-17.0) g/dL Hct (38.0-50.0) % MCV (80.0-98.0) fL MCH (27.0-32.0) pg MCHC (31.0-37.0) g/dL RDW Std Deviation (28.0-62.0) fl RDW Coeff of Ekaterina (11.0-15.0) % Plt Count (150-400) K/uL MPV (7.40-12.00) fL Neut % (Auto) (48.0-80.0) % Lymph % (Auto) (16.0-40.0) % Sabine % (Auto) (0.0-15.0) % Eos % (Auto) (0.0-7.0) % Baso % (Auto) (0.0-1.5) % Neut # (Auto) (1.4-5.7) K/uL Lymph # (Auto) (0.6-2.4) K/uL Sabine # (Auto) (0.0-0.8) K/uL Eos # (Auto) (0.0-0.7) K/uL Baso # (Auto) (0.0-0.1) K/uL Nucleated RBC % /100WBC Nucleated RBCs # K/uL ESR (0-14) mm/hr Sodium (136-148) mmol/L Potassium (3.5-5.1) mmol/L Chloride (98-107) mmol/L Carbon Dioxide (21.0-32.0) mmol/L BUN (7.0-18.0) mg/dL Creatinine (0.8-1.3) mg/dL Est Cr Clr Drug Dosing mL/min Estimated GFR (MDRD) ml/min Glucose (74-106) mg/dL Calcium (8.5-10.1) mg/dL Total Bilirubin (0.2-1.0) mg/dL AST (15-37) IU/L ALT (14-63) IU/L Alkaline Phosphatase (46-116) U/L Troponin I 0.156 H* 0.101 H* (0.000-0.056) ng/mL Total Protein (6.4-8.2) g/dL Albumin (3.4-5.0) g/dL Globulin (2.6-4.0) g/dL Albumin/Globulin Ratio (0.9-1.6) Urine Opiates Screen (NEGATIVE) Ur Oxycodone Screen (NEGATIVE) Urine Methadone Screen (NEGATIVE) Ur Barbiturates Screen (NEGATIVE) Ur Phencyclidine Scrn (NEGATIVE) Ur Amphetamine Screen (NEGATIVE) U Methamphetamines Scrn (NEGATIVE) U Benzodiazepines Scrn (NEGATIVE) U Cocaine Metab Screen (NEGATIVE) U Marijuana (THC) Screen (NEGATIVE) COVID-19 ([place]) (NEGATIVE) Med Orders - Current: Current Medications Sodium Chloride (Saline Flush) 2.5 ml FLUSH ASDIRECTED PRN PRN Reason: Keep Vein Open Last Admin: 05/18/20 18:45 Dose: 2.5 ml Documented by: Sodium Chloride (Saline Flush) 10 ml FLUSH ASDIRECTED PRN PRN Reason: Keep Vein Open Last Admin: 05/18/20 18:45 Dose: 10 ml Documented by: Sodium Chloride (Saline Flush) 2.5 ml FLUSH ASDIRECTED PRN PRN Reason: Keep Vein Open Last Admin: 05/18/20 18:45 Dose: 2.5 ml Documented by: Sodium Chloride (Normal Saline) 10 ml IV ASDIRECTED PRN PRN Reason: IV Use Discontinued Medications Aspirin (Aspirin) 324 mg PO ONETIME ONE Stop: 05/18/20 18:09 Last Admin: 05/18/20 18:44 Dose: 324 mg Documented by: Gadobenate Dime[place]umine (Multihance) 20 ml IVPUSH ONETIME STA Stop: 05/19/20 10:20 Last Admin: 05/19/20 10:20 Dose: 19 ml Documented by: Sodium Chloride (Normal Saline) 1,000 mls @ 120 mls/hr IV CONTINUOUS ONE Stop: 05/19/20 04:04 Last Admin: 05/18/20 21:52 Dose: 120 mls/hr Documented by:
--- NOTE | 2020-05-21 11:44 | ECHO ---
EXAM DATE: 05/18/20 PATIENT'S AGE: 35 The ECHO report has been scanned into [facility] and can be seen in this patient's EMR (Electronic Medical Record) under the REPORTS section. The report has also been scanned into PACS. YOGI
== END 2020-05-19 20:15 | disposition home or self-care (01) ==
LOC: MW.ED 16:56 → MW.MS 18:51
PROVIDERS: ADMIT Internal Medicine; ATTEND Internal Medicine
DX: R20.0 Anesthesia of skin (principal); E78.00 Pure hypercholesterolemia, unspecified; R79.89 Other specified abnormal findings of blood chemistry; K21.9 Gastro-esophageal reflux disease without esophagitis; R74.8 Abnormal levels of other serum enzymes; R00.0 Tachycardia, unspecified; N20.0 Calculus of kidney; G90.511 Complex regional pain syndrome I of right upper limb; Z20.828 Contact with and (suspected) exposure to other viral communicable diseases; Z87.828 Personal history of other (healed) physical injury and trauma; Z88.8 Allergy status to other drugs, medicaments and biological substances; Z88.5 Allergy status to narcotic agent
CPT/HCPCS: 36415; 70450; 70549; 70553; 71045; 80053; 80305; 82550; 84443; 84484; 85025; 85610; 85652; 85730; 86140; 87635; 93005; 93306; 96360; 96361; 99285; A9270; A9577; G0378; J7030; 99284; U0002

== ENCOUNTER 2021-08-28 13:40 | Emergency (ER) | payer OTHER ==
--- NOTE | 2021-08-28 14:46 | EDM.PDOC ---
ED HPI GENERAL MEDICAL PROBLEM - General Chief Complaint: Upper Extremity Injury/Pain Stated Complaint: R SIDE PAIN/WEAKNESS FEELING Time Seen by Provider: 08/28/21 13:57 Source of Information: Reports: Patient History Limitations: Reports: No Limitations - History of Present Illness INITIAL COMMENTS - FREE TEXT/NARRATIVE: HISTORY AND PHYSICAL: History of present illness: Patient is a 36-year-old male who presents emergency room today with concern of right sided chest pain that does radiate down into his right bicep area. Patient states that he has been having these symptoms over the past 2 days and thought it was more musculoskeletal in nature as he does have tenderness to palpation of the overlying muscles. Patient states however, in the past he has had positive troponin and was told that he may have had a TIA and states that he was concerned that he was ignoring chest pain so came here to the emergency room. 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 Patient states that the pain is worse with range of motion of the right shoulder. Patient states that he did sustain a crush injury to his left forearm a few years ago and has limited range of motion of his wrist and digits of the right upper extremity but states that his movement of his extremity is per his baseline and denies any change in this. Patient denies any other symptoms or concerns. Patient denies fever, chills, shortness of breath, or cough. Denies headache, neck stiff ness, change in vision, syncope, or near syncope. Denies nausea, vomiting, abdominal pain, diarrhea, constipation, or dysuria. Has not noted any blood in urine or stool. Patient has been eating and drinking appropriately. Review of systems: As per history of present illness and below otherwise all systems reviewed and negative. Past medical history: As per history of present illness and as reviewed below otherwise noncontributory. Surgical history: As per history of present illness and as reviewed below otherwise noncontributory. Social history: See social history for further information Family history: As per history of present illness and as reviewed below otherwise noncontributory. Physical exam: General: Patient is alert, oriented, and in no acute distress. Patient sitting comfortably on exam table. Vitals stable and reviewed by me. HEENT: Atraumatic, normocephalic, pupils equal and reactive bilaterally, negative for conjunctival pallor or scleral icterus, mucous membranes moist, throat clear, neck supple, nontender, trachea midline. No drooling or trismus noted. No meningeal signs. No hot potato voice noted. Lungs: Clear to auscultation, breath sounds equal bilaterally, chest nontender. Heart: S1S2, regular rate and rhythm without overt murmur Abdomen: Soft, nondistended, nontender. Negative for masses or hepatosplenomegaly. Negative for costovertebral tenderness. Pelvis: Stable nontender. Genitourinary: Deferred. Rectal: Deferred. Skin: Intact, warm, dry. No lesions or rashes noted. Extremities: Patient does have full range of motion of complete bilateral lower extremities and left upper extremity. Patient does have limited range of motion of the right wrist and digits of the right upper extremity but this is per his baseline secondary to crush injury according to patient. Patient has scarring of his left forearm and elbow consistent with surgical history. Radial pulse is grossly intact of the right upper extremity with capillary refill less than 2 seconds. No erythema or edema of the complete right upper extremity. Patient does have recreation of his symptoms with isolation of the bicep muscle of the right upper extremity and into the pectoralis muscle group of the right chest wall. Otherwise, atraumatic, negative for cords or calf pain. Neurovascular un remarkable. Neuro: Awake, alert, oriented. Cranial nerves II through XII unremarkable. Cerebellum unremarkable. Motor and sensory unremarkable throughout. Exam nonfocal. Medical Decision Making: Patient is a 36-year-old male who presents emergency room today with concern of right-sided chest pain x2 days. Patient does describe this chest pain is musculoskeletal, however, has had a history of elevated troponin and possible TIA in the past. Upon arrival to the ED, patient is vitally stable and well- appearing on exam. Patient does have recreation of his discomfort with isolation of the bicep muscle and the pectoralis muscle group of the right chest wall. However, given patient's medical history, will obtain cardiac evaluation. See Dr. Garcia dictation for specific EKG interpretation. Otherwise, normal sinus rhythm without STEMI. Mild derangements of CBC and CMP are unremarkable. Troponin negative. Chest x- ray is unremarkable. Upon reevaluation of patient, remains vitally stable and comfortable throughout stay in ED. Strict return precautions thoroughly discussed with patient. Discussed importance for follow-up with a primary care provider. Voices understanding and is agreeable to plan of care. Denies any further questions or concerns at this time. Diagnostics: EKG, CBC, CMP, chest x-ray 1 view, troponin Therapeutics: None Prescription: None Impression: Chest wall pain Plan: 1. Rest, ice and or heat the affected areas. You can apply ice and or heat 15 minutes on, 15 minutes off. 2. Tylenol and/or Ibuprofen as directed for pain management or discomfort. 3. Follow up with the primary care provider as discussed. Return to the ED as needed and as discussed. Definitive disposition and diagnosis as appropriate pending reevaluation and review of above. Right Upper Arm Pain Score (Numeric/FACES): 5 - Related Data Allergies Allergy/AdvReac Type Severity Reaction Status Date / Time fentanyl Allergy Other Verified 08/28/21 13:55 hydromorphone Allergy Respiratory Verified 08/28/21 13:55 Distress Home Meds: Home Meds Cholecalciferol (Vitamin D3) [Vitamin D] 5,000 unit PO DAILY 05/27/15 [History] Buprenorphine HCl/Naloxone HCl [Suboxone 4 mg-1 mg Sl Film] 20 mg SL DAILY 08/28/21 [History] Fenofibrate 40 mg PO DAILY 08/28/21 [History] Past Medical History HEENT History: Reports: None Cardiovascular History: Reports: High Cholesterol Respiratory History: Reports: None Gastrointestinal History: Reports: GERD Genitourinary History: Reports: Renal Calculus Musculoskeletal History: Reports: Other (See Below) Other Musculoskeletal History: Right hand surgery for a crush injury Neurological History: Reports: None Psychiatric History: Reports: None Endocrine/Metabolic History: Reports: None Hematologic History: Reports: None Immunologic History: Reports: None Oncologic (Cancer) History: Reports: None Dermatologic History: Reports: None - Infectious Disease History Infectious Disease History: Reports: None - Past Surgical History Head Surgeries/Procedures: Reports: None HEENT Surgical History: Reports: None Cardiovascular Surgical History: Reports: None Respiratory Surgical History: Reports: None GI Surgical History: Reports: None Male Surgical History: Reports: None Endocrine Surgical History: Reports: None Neurological Surgical History: Reports: None Musculoskeletal Surgical History: Reports: None Other Musculoskeletal Surgeries/Procedures:: hand surgery Oncologic Surgical History: Reports: None Dermatological Surgical History: Reports: None Social & Family History - Family History Family Medical History: No Pertinent Family History Psychiatric: Reports: ADD, Anxiety, Bipolar, Depression, PTSD Endocrine/Metabolic: Reports: Diabetes, type II - Tobacco Use Tobacco Use Status *Q: Never Tobacco User - Caffeine Use Caffeine Use: Reports: Soda - Recreational Drug Use Recreational Drug Use: No - Living Situation & Occupation Living situation: Reports: , with Spouse, with Family (4 kids) 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 ED EXAM, GENERAL - Physical Exam Exam: See Below (see dictation) Course - Vital Signs Last Recorded V/S: Last Vital Signs Temp 97.2 F 08/28/21 13:59 Pulse 89 08/28/21 13:59 Resp 16 08/28/21 13:59 BP 150/85 H 08/28/21 13:59 Pulse Ox 99 08/28/21 13:59 - Orders/Labs/Meds Labs: Laboratory Tests 08/28/21 08/28/21 Range/Units 14:36 14:36 WBC 5.10 (4.0-11.0) K/uL RBC 5.09 (4.50-5.90) M/uL Hgb 14.5 (13.0-17.0) g/dL Hct 42.4 (38.0-50.0) % MCV 83.3 (80.0-98.0) fL MCH 28.5 (27.0-32.0) pg MCHC 34.2 (31.0-37.0) g/dL RDW Std Deviation 37.4 (28.0-62.0) fl RDW Coeff of Ekaterina 12 (11.0-15.0) % Plt Count 221 (150-400) K/uL MPV 10.10 (7.40-12.00) fL Neut % (Auto) 60.7 (48.0-80.0) % Lymph % (Auto) 31.8 (16.0-40.0) % Josephine % (Auto) 6.1 (0.0-15.0) % Eos % (Auto) 1.2 (0.0-7.0) % Baso % (Auto) 0.2 (0.0-1.5) % Neut # (Auto) 3.1 (1.4-5.7) K/uL Lymph # (Auto) 1.6 (0.6-2.4) K/uL Josephine # (Auto) 0.3 (0.0-0.8) K/uL Eos # (Auto) 0.1 (0.0-0.7) K/uL Baso # (Auto) 0.0 (0.0-0.1) K/uL Nucleated RBC % 0.0 /100WBC Nucleated RBCs # 0 K/uL Sodium 140 (136-148) mmol/L Potassium 3.9 (3.5-5.1) mmol/L Chloride 104 (98-107) mmol/L Carbon Dioxide 26.8 (21.0-32.0) mmol/L BUN 13 (7.0-18.0) mg/dL Creatinine 1.1 (0.8-1.3) mg/dL Est Cr Clr Drug Dosing 87.63 mL/min Estimated GFR (MDRD) > 60.0 ml/min Glucose 139 H (74-106) mg/dL Calcium 8.9 (8.5-10.1) mg/dL Total Bilirubin 0.3 (0.2-1.0) mg/dL AST 24 (15-37) IU/L ALT 46 (14-63) IU/L Alkaline Phosphatase 79 (46-116) U/L Troponin I < 0.050 (0.000-0.056) ng/mL Total Protein 7.8 (6.4-8.2) g/dL Albumin 3.8 (3.4-5.0) g/dL Globulin 4.0 (2.6-4.0) g/dL Albumin/Globulin Ratio 0.9 (0.9-1.6) Departure - Departure Time of Disposition: 15:16 Disposition: Home, Self-Care 01 Clinical Impression: Chest wall pain - Discharge Information Referrals: Vika Bustos NP [Primary Care Provider] - Forms: ED Department Discharge Additional Instructions: The following information is given to patients seen in the emergency department who are being discharged to home. This information is to outline your options for follow-up care. We provide all patients seen in our emergency department with a follow-up referral. The need for follow-up, as well as the timing and circumstances, are variable depending upon the specifics of your emergency department visit. If you don't have a primary care physician on staff, we will provide you with a referral. We always advise you to contact your personal physician following an emergency department visit to inform them of the circumstance of the visit and for follow-up with them and/or the need for any referrals to a consulting specialist. The emergency department will also refer you to a specialist when appropriate. This referral assures that you have the opportunity for follow-up care with a specialist. All of these measure are taken in an effort to provide you with optimal care, which includes your follow-up. Under all circumstances we always encourage you to contact your private physician who remains a resource for coordinating your care. When calling for follow-up care, please make the office aware that this follow-up is from your recent emergency room visit. If for any reason you are refused follow-up, please contact the [facility] Emergency Department at and asked to speak to the emergency department charge nurse. [facility] [address] [place] [id number] [place] [address] 1. Rest, ice and or heat the affected areas. You can apply ice and or heat 15 minutes on, 15 minutes off. 2. Tylenol and/or Ibuprofen as directed for pain management or discomfort. 3. Follow up with the primary care provider as discussed. Return to the ED as needed and as discussed. Sepsis Event Note (ED) - Evaluation Sepsis Screening Result: No Definite Risk - Focused Exam Vital Signs: Vital Signs Temp Pulse Resp BP Pulse Ox 08/28/21 13:59 97.2 F 89 16 150/85 H 99
[2021-08-28 15:09] LABS: BLOOD UREA NITROGEN,BUN 13 mg/dL (7.0-18.0); CARBON DIOXIDE,CO2 26.8 mmol/L (21.0-32.0); CHLORIDE,CL 104 mmol/L (98-107); GLUCOSE RANDOM 139 mg/dL (74-106); POTASSIUM,K 3.9 mmol/L (3.5-5.1); SODIUM,NA 140 mmol/L (136-148)
--- NOTE | 2021-08-28 15:13 | CR ---
INDICATION: Chest pain. COMPARISON: 05/18/2020. Finding: An AP view of the chest was obtained. The cardiac silhouette and pulmonary vasculature are within normal limits. The lungs are clear bilaterally. IMPRESSION: No evidence of acute pulmonary disease. Dictated by Darius Woodall MD @ 08/28/2021 3:11:26 PM (Electronically Signed)
[2021-08-28 15:31] VITALS: BP 107/53; PULSE 72
--- NOTE | 2021-08-28 17:20 | PCM.EKG ---
#1 Interpretation EKG Date: 08/28/21 Time: 14:37 EKG Interpretation Comments: EKG: As interpreted by ER physician: Radha: Nonspecific ST-T wave abnormalities Normal axis No evidence of ST elevation MN Normal sinus rhythm heart rate of 65
== END 2021-08-28 15:31 | disposition home or self-care (01) ==
LOC: MW.ED 13:40
DX: R07.89 Other chest pain (principal); E78.00 Pure hypercholesterolemia, unspecified; Z88.5 Allergy status to narcotic agent; Z79.899 Other long term (current) drug therapy
CPT/HCPCS: 36415; 71045; 71045-26; 80053; 84484; 85025; 93005; 99285-25

== ENCOUNTER 2021-09-14 22:14 | Emergency (ER) | payer OTHER ==
[2021-09-14 23:23] LABS: ACETAMINOPHEN <2.0 ug/mL; BLOOD UREA NITROGEN,BUN 12 mg/dL (7.0-18.0); CARBON DIOXIDE,CO2 26.6 mmol/L (21.0-32.0); CHLORIDE,CL 102 mmol/L (98-107); GLUCOSE RANDOM 103 mg/dL (74-106); POTASSIUM,K 3.7 mmol/L (3.5-5.1); SODIUM,NA 140 mmol/L (136-148)
--- NOTE | 2021-09-15 01:16 | EDM.PDOC ---
ED HPI GENERAL MEDICAL PROBLEM - General Chief Complaint: General Stated Complaint: POSSIBLE OD ON ICY HOT Time Seen by Provider: 09/14/21 22:33 - History of Present Illness INITIAL COMMENTS - FREE TEXT/NARRATIVE: Jesus COMPLAINT(S): "I am a hypochondriac and I have pains in my stomach." HISTORY OF PRESENT ILLNESS: This is a 36-year-old man with a past medical history of chronic regional pain syndrome, prior history of nephrolithiasis, history of elevated troponin and self-reported hypochondriasis who comes to the emergency department with a chief complaint of "I am a hypochondriac and I have pains in my stomach." The patient states that he is "a hypochondriac and has pains in his stomach." 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 He states that he has been using 1 roll per day for at least the last 2 weeks. He comes to the emergency department at the urgency of his after calling [employer] because he has been experiencing ringing in his ears, mood changes as soon as he wake up, numbness all over his body and decreased taste sensation and thinks he has overdosed on icy hot. He states that he got tested for Covid and does not have that. He states that [employer] told him to come to the emergency department. He denies any head injury, loss of consciousness, trouble walking, speaking or swallowing. He denies any excessive aspirin use, chemical exposures or any other symptoms. He states that he was recently evaluated in [place] for similar symptoms for he underwent imaging including CT head and labs all of which were normal. He states that he was treated with Toradol and had a allergic reaction other than that no other history. REVIEW OF SYSTEMS: Constitutional: Denies fever, chills. Eyes: Denies eye pain Ears, Nose, Mouth, & Throat: Positive for bilateral tinnitus and decreased sensation on tongue Cardiovascular: Denies chest pain Respiratory: Denies shortness of breath Gastrointestinal: Denies Nausea, vomiting, diarrhea, hematochezia. Genitourinary: Denies hematuria Skin:Denies a rash MSK: Denies joint pain Neurological: Positive for numbness all over his body. Denies blurred vision, trouble walking, speaking or swallowing Psychiatric: Positive for mood swings. Denies depression PAST MEDICAL HISTORY: As per history of present illness and as reviewed below otherwise noncontributory. SURGICAL HISTORY: As per history of present illness and as reviewed below otherwise noncontributory. SOCIAL HISTORY: As per history of present illness and as reviewed below otherwise noncontributory. FAMILY HISTORY: As per history of present illness and as reviewed below otherwise noncontributory. EXAMINATION OF ORGAN SYSTEMS/BODY AREAS: Constitutional: Blood pressure was 142/79, heart rate 70, respiratory rate 18 with an oxygen saturation 99% on room air. Temperature 35.9 General: Well-appearing man who is in no acute distress Psychiatric: Appears mildly anxious, cooperative Eyes: No scleral icterus or conjunctival erythema pupils are equal round reactive to light. Extraocular movements intact. No vertical or horizontal nystagmus. ENMT: Moist mucous membranes. No pharyngeal erythema tongue protrudes midline. No stridor, drooling, trismus. Bilateral tympanic membranes without any bulging or erythema. Bilateral nasal turbinates with clear nasal drainage. Cardiovascular: Regular, rate, and rhythm. No gallops, murmurs, or rubs. Bilateral upper extremity pulses symmetric and intact. No peripheral edema. No JVD. Respiratory: Lungs clear to auscultation bilaterally. No wheezes, rales, or rhonchi. Gastrointestinal: Soft, non-tender, non-distended. Normoactive bowel sounds Genitourinary: No suprapubic tenderness Musculoskeletal: Normal range of motion. Skin: No lesions or abrasions. Neurological: AOx4. Strength 5/5 in bilateral upper and lower extremity. Sensation is intact bilaterally in upper and lower extremity. Gait appears normal. Finger to nose, heel to pimentel, rapid alternating movements intact. MEDICAL DECISION MAKING AND COURSE IN THE ED WITH INTERPRETATION/REVIEW OF DIAGNOSTIC STUDIES: This is a 36-year-old man with a past medical history of chronic regional pain syndrome, prior history of nephrolithiasis, history of elevated troponin and self-reported hypochondriasis who comes to the emergency department with multiple complaints including bilateral tinnitus, total body numbness and concerns for possible IcyHot overdose. At this time we did call poison control and it apparently can contain salicylates therefore at this time we are concerned about the possibility of salicylate toxicity. The patient denies any other salicylate use. Will obtain labs including CBC, CMP, ABG, salicylates, Tylenol and alcohol. Will obtain a urine drug screen. I did obtain a screening EKG which was unremarkable. We also obtain an INR. I did review the patient's chart and in April 2020 the patient did have a MRI/MRI of the head, neck. There was no abnormalities therefore aneurysm or other vascular abnormality is unlikely. I do not believe repeat imaging is indicated at this time. Patient denies any infectious symptoms therefore we will hold off on any other imaging or swab. The patient was amenable to this plan. EKG was obtained which did not reveal any acute signs of ischemia Laboratory: CBC is unremarkable. CMP is unremarkable. INR is normal. ABG is normal. Urine drug screen is negative. Serum drug screen is negative. After labs and EKG I did discuss results with the patient. At this time I do not believe the patient requires any further work-up. I did discussed follow-up with his primary care physician and follow-up with ENT given his tinnitus. He was given strict return precautions and was amenable discharge at this time and had no further questions. DISPOSITION: The patient was discharged home in stable condition. The patient will follow up with ENT and his primary care physician as soon as possible CONDITION: Fair PROCEDURES: None FINAL IMPRESSION(S)/DIAGNOSES: 1. Acute tinnitus Edgar Gallegos M.D. - Related Data Allergies Allergy/AdvReac Type Severity Reaction Status Date / Time fentanyl Allergy Swollen Verified 09/14/21 22:30 Tongue hydromorphone Allergy Respiratory Verified 09/14/21 22:30 Distress ketorolac [From Toradol] Allergy Swelling Verified 09/14/21 22:30 Home Meds: Home Meds Buprenorphine HCl/Naloxone HCl [Suboxone 4 mg-1 mg Sl Film] 20 mg SL DAILY 08/28/21 [History] Fenofibrate 40 mg PO DAILY 08/28/21 [History] Cyclobenzaprine [Flexeril] 10 mg PO DAILY 09/14/21 [History] Topiramate [Topamax] 50 mg PO BEDTIME 09/14/21 [History] Past Medical History HEENT History: Reports: None Cardiovascular History: Reports: High Cholesterol Respiratory History: Reports: None Gastrointestinal History: Reports: GERD Genitourinary History: Reports: Renal Calculus Musculoskeletal History: Reports: Other (See Below) Other Musculoskeletal History: Hand Surgery Neurological History: Reports: None Psychiatric History: Reports: None Endocrine/Metabolic History: Reports: None Insulin Pump Model and Medical Charge Entry Specialist: N/A Hematologic History: Reports: None Immunologic History: Reports: None Oncologic (Cancer) History: Reports: None Dermatologic History: Reports: None - Infectious Disease History Infectious Disease History: Reports: None - Past Surgical History Head Surgeries/Procedures: Reports: None HEENT Surgical History: Reports: None Cardiovascular Surgical History: Reports: None Respiratory Surgical History: Reports: None GI Surgical History: Reports: None Male Surgical History: Reports: None Endocrine Surgical History: Reports: None Neurological Surgical History: Reports: None Musculoskeletal Surgical History: Reports: None Oncologic Surgical History: Reports: None Dermatological Surgical History: Reports: None Social & Family History - Family History Family Medical History: No Pertinent Family History Psychiatric: Reports: ADD, Anxiety, Bipolar, Depression, PTSD Endocrine/Metabolic: Reports: Diabetes, type II - Caffeine Use Caffeine Use: Reports: None - Recreational Drug Use Recreational Drug Use: No - Living Situation & Occupation Living situation: Reports: , with Spouse, with Family (4 kids) 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) ED ROS GENERAL - Review of Systems Review Of Systems: See Below ED EXAM, GENERAL - Physical Exam Exam: See Below Course - Vital Signs Last Recorded V/S: Last Vital Signs Temp 35.9 C L 09/14/21 22:20 Pulse 66 09/15/21 01:25 Resp 16 09/15/21 01:25 BP 118/68 09/15/21 01:25 Pulse Ox 95 09/15/21 01:25 - Orders/Labs/Meds Labs: Laboratory Tests 09/14/21 09/14/21 09/14/21 Range/Units 22:52 22:52 22:52 WBC 6.45 (4.0-11.0) K/uL RBC 5.17 (4.50-5.90) M/uL Hgb 15.0 (13.0-17.0) g/dL Hct 42.3 (38.0-50.0) % MCV 81.8 (80.0-98.0) fL MCH 29.0 (27.0-32.0) pg MCHC 35.5 (31.0-37.0) g/dL RDW Std Deviation 36.9 (28.0-62.0) fl RDW Coeff of Ekaterina 13 (11.0-15.0) % Plt Count 220 (150-400) K/uL MPV 10.10 (7.40-12.00) fL Neut % (Auto) 54.5 (48.0-80.0) % Lymph % (Auto) 35.5 (16.0-40.0) % [place] % (Auto) 8.7 (0.0-15.0) % Eos % (Auto) 1.1 (0.0-7.0) % Baso % (Auto) 0.2 (0.0-1.5) % Neut # (Auto) 3.5 (1.4-5.7) K/uL Lymph # (Auto) 2.3 (0.6-2.4) K/uL [place] # (Auto) 0.6 (0.0-0.8) K/uL Eos # (Auto) 0.1 (0.0-0.7) K/uL Baso # (Auto) 0.0 (0.0-0.1) K/uL Nucleated RBC % 0.0 /100WBC Nucleated RBCs # 0 K/uL INR ABG pH (7.35-7.45) ABG pCO2 (35-45) mmHG ABG pO2 (80-105) mmHG ABG HCO3 (22-26) mEq/L ABG Total CO2 (23-27) mmol/L ABG Base Excess (-2.0-3.0) Sodium 140 (136-148) mmol/L Potassium 3.7 (3.5-5.1) mmol/L Chloride 102 (98-107) mmol/L Carbon Dioxide 26.6 (21.0-32.0) mmol/L BUN 12 (7.0-18.0) mg/dL Creatinine 1.0 (0.8-1.3) mg/dL Est Cr Clr Drug Dosing 96.40 mL/min Estimated GFR (MDRD) > 60.0 ml/min Glucose 103 (74-106) mg/dL Lactic Acid 0.4 (0.4-2.0) mmol/L Calcium 9.1 (8.5-10.1) mg/dL Magnesium 2.0 (1.8-2.4) mg/dL Total Bilirubin 0.4 (0.2-1.0) mg/dL AST 16 (15-37) IU/L ALT 31 (14-63) IU/L Alkaline Phosphatase 82 (46-116) U/L Total Protein 7.7 (6.4-8.2) g/dL Albumin 4.0 (3.4-5.0) g/dL Globulin 3.7 (2.6-4.0) g/dL Albumin/Globulin Ratio 1.1 (0.9-1.6) Salicylates 0.7 (0-20) mg/dL Urine Opiates Screen (NEGATIVE) Ur Oxycodone Screen (NEGATIVE) Urine Methadone Screen (NEGATIVE) Acetaminophen <2.0 ug/mL Ur Barbiturates Screen (NEGATIVE) Ur Phencyclidine Scrn (NEGATIVE) Ur Amphetamine Screen (NEGATIVE) U Methamphetamines Scrn (NEGATIVE) U Benzodiazepines Scrn (NEGATIVE) U Cocaine Metab Screen (NEGATIVE) U Marijuana (THC) Screen (NEGATIVE) Ethyl Alcohol <3 mg/dL 09/14/21 09/14/21 09/14/21 Range/Units 22:52 23:03 23:17 WBC (4.0-11.0) K/uL RBC (4.50-5.90) M/uL Hgb (13.0-17.0) g/dL Hct (38.0-50.0) % MCV (80.0-98.0) fL MCH (27.0-32.0) pg MCHC (31.0-37.0) g/dL RDW Std Deviation (28.0-62.0) fl RDW Coeff of Ekaterina (11.0-15.0) % Plt Count (150-400) K/uL MPV (7.40-12.00) fL Neut % (Auto) (48.0-80.0) % Lymph % (Auto) (16.0-40.0) % Atlantic % (Auto) (0.0-15.0) % Eos % (Auto) (0.0-7.0) % Baso % (Auto) (0.0-1.5) % Neut # (Auto) (1.4-5.7) K/uL Lymph # (Auto) (0.6-2.4) K/uL Atlantic # (Auto) (0.0-0.8) K/uL Eos # (Auto) (0.0-0.7) K/uL Baso # (Auto) (0.0-0.1) K/uL Nucleated RBC % /100WBC Nucleated RBCs # K/uL INR 1.00 ABG pH 7.40 (7.35-7.45) ABG pCO2 40 (35-45) mmHG ABG pO2 77 L (80-105) mmHG ABG HCO3 24 (22-26) mEq/L ABG Total CO2 21.6 L (23-27) mmol/L ABG Base Excess -0.5 (-2.0-3.0) Sodium (136-148) mmol/L Potassium (3.5-5.1) mmol/L Chloride (98-107) mmol/L Carbon Dioxide (21.0-32.0) mmol/L BUN (7.0-18.0) mg/dL Creatinine (0.8-1.3) mg/dL Est Cr Clr Drug Dosing mL/min Estimated GFR (MDRD) ml/min Glucose (74-106) mg/dL Lactic Acid (0.4-2.0) mmol/L Calcium (8.5-10.1) mg/dL Magnesium (1.8-2.4) mg/dL Total Bilirubin (0.2-1.0) mg/dL AST (15-37) IU/L ALT (14-63) IU/L Alkaline Phosphatase (46-116) U/L Total Protein (6.4-8.2) g/dL Albumin (3.4-5.0) g/dL Globulin (2.6-4.0) g/dL Albumin/Globulin Ratio (0.9-1.6) Salicylates (0-20) mg/dL Urine Opiates Screen NEGATIVE (NEGATIVE) Ur Oxycodone Screen NEGATIVE (NEGATIVE) Urine Methadone Screen NEGATIVE (NEGATIVE) Acetaminophen ug/mL Ur Barbiturates Screen NEGATIVE (NEGATIVE) Ur Phencyclidine Scrn NEGATIVE (NEGATIVE) Ur Amphetamine Screen NEGATIVE (NEGATIVE) U Methamphetamines Scrn NEGATIVE (NEGATIVE) U Benzodiazepines Scrn NEGATIVE (NEGATIVE) U Cocaine Metab Screen NEGATIVE (NEGATIVE) U Marijuana (THC) Screen NEGATIVE (NEGATIVE) Ethyl Alcohol mg/dL Departure - Departure Time of Disposition: 01:16 Disposition: Home, Self-Care 01 Condition: Fair Clinical Impression: Tinnitus - Discharge Information *PRESCRIPTION DRUG MONITORING PROGRAM REVIEWED*: No *COPY OF PRESCRIPTION DRUG MONITORING REPORT IN PATIENT BERNA: No Instructions: Tinnitus Referrals: PCP,None [Primary Care Provider] - Forms: ED Department Discharge Additional Instructions: You were evaluated today on an emergent basis. At this time in conjunction with poison control our main concern was salicylate toxicity given that some IcyHot does contain salicylates. This is the same compound and aspirin. Usual salicylate level today was normal and all of your labs are within normal limits. The rhythm strip of your heart was also normal. I recommend that you refrain from that amount of IcyHot usage and I recommend that you follow-up with the ENT given the ringing in your ears. I do not see any signs of infection in your body and your vital signs were also normal. I recommend that you follow-up with your primary care physician in 3 to 5 days also. Please return for any new or worsening symptoms Such as trouble walking, speaking or swallowing. [facility] [address] [place] [address] [place] [address] E[address] Sandy Simms [phone] [place], [place] The patient is informed of any results of their evaluation and diagnostic workup and all questions are answered. They are given discharge instructions and return precautions. The patient is stable for discharge. The patient states they understand and agree with the plan and that they will return if their symptoms get worse or if they have any new concerns. The following information is given to patients seen in the emergency department who are being discharged to home. This information is to outline your options for follow-up care. We provide all patients seen in our emergency department with a follow-up referral. The need for follow-up, as well as the timing and circumstances, are variable depending upon the specifics of your emergency department visit. If you don't have a primary care physician on staff, we will provide you with a referral. We always advise you to contact your personal physician following an emergency department visit to inform them of the circumstance of the visit and for follow-up with them and/or the need for any referrals to a consulting specialist. The emergency department will also refer you to a specialist when appropriate. This referral assures that you have the opportunity for follow-up care with a specialist. All of these measure are taken in an effort to provide you with optimal care, which includes your follow-up. Under all circumstances we always encourage you to contact your private physician who remains a resource for coordinating your care. When calling for follow-up care, please make the office aware that this follow-up is from your recent emergency room visit. If for any reason you are refused follow-up, please contact the Emergency Department at and asked to speak to the emergency department charge nurse. Sepsis Event Note (ED) - Evaluation Sepsis Screening Result: No Definite Risk - Focused Exam Vital Signs: Vital Signs Temp Pulse Resp BP Pulse Ox 09/15/21 01:25 66 16 118/68 95 09/14/21 22:20 35.9 C L 70 18 142/79 H 99
[2021-09-15 01:25] VITALS: BP 118/68; PULSE 66
--- NOTE | 2021-09-15 01:26 | PCM.EKG ---
#1 Interpretation EKG Date: 09/14/21 Time: 22:42 Rhythm: NSR Rate (Beats/Min): 62 [place]: Normal P-Wave: Present QRS: Normal ST-T: Normal QT: Normal Comparison: No Change (08/28/21) EKG Interpretation Comments: Sinus Rhythm
== END 2021-09-15 01:25 | disposition home or self-care (01) ==
LOC: MW.ED 22:14
DX: H93.13 Tinnitus, bilateral (principal); Z88.5 Allergy status to narcotic agent; Z88.6 Allergy status to analgesic agent; Z88.8 Allergy status to other drugs, medicaments and biological substances
CPT/HCPCS: 36415; 36600; 80053; 80143; 80179; 80305-QW; 80307; 82803; 83605; 83735; 85025; 85610; 93005; 99284-25

== ENCOUNTER 2021-11-07 20:39 | Emergency (ER) | payer OTHER ==
[2021-11-07] MEDS ORDERED: Benzocaine 20% Topical Spray UD MUCMEM ONE (21:26)
[2021-11-07] MEDS ORDERED: Lidocaine 2% Viscous Solution 15 ML UD PO ONE (21:26)
[2021-11-07 21:39] VITALS: BP 135/74; PULSE 94
== END 2021-11-07 21:39 | disposition home or self-care (01) ==
LOC: MW.ED 20:39
DX: K08.89 Other specified disorders of teeth and supporting structures (principal); K00.7 Teething syndrome; E78.00 Pure hypercholesterolemia, unspecified; K21.9 Gastro-esophageal reflux disease without esophagitis; Z88.5 Allergy status to narcotic agent; Z88.6 Allergy status to analgesic agent; Z88.8 Allergy status to other drugs, medicaments and biological substances
CPT/HCPCS: 99282; A9270

== ENCOUNTER 2022-05-10 15:01 | Emergency (ER) | payer OTHER ==
[2022-05-10] MEDS ORDERED: Acetaminophen 500 MG Tab PO ONE (18:31)
[2022-05-10 18:46] VITALS: BP 122/77; PULSE 65
== END 2022-05-10 18:45 | disposition home or self-care (01) ==
LOC: MW.ED 15:01
DX: S09.90XA Unspecified injury of head, initial encounter (principal); E78.00 Pure hypercholesterolemia, unspecified; Z88.4 Allergy status to anesthetic agent; Z88.5 Allergy status to narcotic agent; Z79.899 Other long term (current) drug therapy; W01.0XXA Fall on same level from slipping, tripping and stumbling without subsequent striking against object, initial encounter
CPT/HCPCS: 70450; 72125; 99283; A9270

== ENCOUNTER 2022-10-02 17:12 | Emergency (ER) | payer OTHER ==
[2022-10-02] MEDS ORDERED: oxyCODONE 5 MG Tab PO ONE (18:11)
[2022-10-02] MEDS ORDERED: Lidocaine 5% 700 MG Patch TOP ONE (18:11)
[2022-10-02 18:28] VITALS: BP 132/77; PULSE 73
== END 2022-10-02 18:42 | disposition home or self-care (01) ==
LOC: MW.ED 17:12
DX: S43.401A Unspecified sprain of right shoulder joint, initial encounter (principal); E78.00 Pure hypercholesterolemia, unspecified; Z79.899 Other long term (current) drug therapy; Z88.5 Allergy status to narcotic agent; Z88.8 Allergy status to other drugs, medicaments and biological substances; Z86.16 Personal history of COVID-19; X50.0XXA Overexertion from strenuous movement or load, initial encounter; Y99.0 Civilian activity done for income or pay
CPT/HCPCS: 73030; 99283; A9270